=== PATIENT | female | born 1935 | race African-American/Black ===

== ENCOUNTER → 2017-01-18 | Outpatient (CLI) | payer MEDICARE, MEDICAID | LOC: RAD 13:30 | PROVIDERS: ATTEND Internal Medicine | DX: R63.4 Abnormal weight loss (principal) | CPT/HCPCS: 74177; 82565 ==

== ENCOUNTER → 2017-01-28 | Outpatient (CLI) | payer MEDICARE, MEDICAID | LOC: WI 14:01 | PROVIDERS: ATTEND Internal Medicine | DX: Z12.31 Encounter for screening mammogram for malignant neoplasm of breast (principal) | CPT/HCPCS: 77067; G0202 ==

== ENCOUNTER → 2017-03-12 | Outpatient (CLI) | payer MEDICARE, MEDICAID | LOC: RAD 16:48 | PROVIDERS: ATTEND Internal Medicine | DX: R06.02 Shortness of breath (principal) | CPT/HCPCS: 71275; 82565 ==

== ENCOUNTER 2017-05-24 19:29 | Inpatient (IN) | payer MEDICARE, MEDICAID ==
[2017-05-24 21:44] LABS: HEMATOCRIT 22.3 % (36.0-47.0); HGB HCT DIFFERENCE -0.7; MEAN CORPUSCULAR HEMOGLOBIN 25.7 pg (27.0-33.4); MEAN CORPUSCULAR HGB CONC 32.1 g/dL (32.0-36.0); MEAN CORPUSCULAR VOLUME 80 fl (80-97); RED BLOOD COUNT 2.79 10^6/uL (3.72-5.28); RED CELL DISTRIBUTION WIDTH 14.4 % (11.5-14.0); WHITE BLOOD COUNT 8.8 10^3/uL (4.0-10.5)
[2017-05-24 21:52] LABS: HEMOGLOBIN 7.2 g/dL (12.0-15.5)
[2017-05-24 21:57] LABS: BLOOD UREA NITROGEN 35 mg/dL (7-20); CALCIUM 9.5 mg/dL (8.4-10.2); CARBON DIOXIDE 22 mmol/L (22-30); CHLORIDE 103 mmol/L (98-107); CREATININE RESULT 1.28 mg/dL (0.52-1.25); GLUCOSE 90 mg/dL (75-110); POTASSIUM 4.4 mmol/L (3.6-5.0); SODIUM 139.2 mmol/L (137-145)
[2017-05-24 21:58] LABS: ALANINE AMINOTRANSFERASE 25 U/L (9-52); ALBUMIN 4.2 g/dL (3.5-5.0); ALKALINE PHOSPHATASE 68 U/L (38-126); ANION GAP 14 (5-19); ASPARTATE AMINO TRANSFERASE 18 U/L (14-36); BILIRUBIN,DIRECT 0.3 mg/dL (0.0-0.4); BILIRUBIN,TOTAL 0.6 mg/dL (0.2-1.3); CREATINE KINASE 45 U/L (30-135); TOTAL PROTEIN 7.1 g/dL (6.3-8.2)
[2017-05-24 22:12] LABS: CREATINE KINASE MB 0.44 ng/mL (<4.55)
[2017-05-24 22:13] LABS: TROPONIN I < 0.012 ng/mL
[2017-05-24 23:07] LABS: FOLATE 9.59 ng/mL (>2.76)
[2017-05-24] MEDS ORDERED: DEXTROSE 50%-WATER SYRINGE 12.5 GM/25 ML DOSE IV PRN (23:16)
[2017-05-24] MEDS ORDERED: GLUCAGON,HUMAN RECOMB 1 MG INJ IM PRN (23:16)
[2017-05-24] MEDS ORDERED: DEXTROSE 40% GEL 15 GM TUBE X 2 PO PRN (23:16)
[2017-05-24] MEDS ORDERED: INSULIN LISPRO 100 UNIT/ML 3 ML VIAL SUBCUT PRN (23:16)
[2017-05-24] MEDS ORDERED: DEXTROSE 40% GEL 15 GM TUBE PO PRN (23:16)
[2017-05-24] MEDS ORDERED: DEXTROSE 50%-WATER SYRINGE 25 GM/50 ML DOSE IV PRN (23:16)
[2017-05-24] MEDS ORDERED: CYANOCOBALAMIN (VITAMIN B-12) 1,000 MCG TABLET PO ONE (23:30)
[2017-05-25] MEDS ORDERED: ALBUTEROL SULFATE 108 MCG IH PRN (00:15)
[2017-05-25] MEDS ORDERED: OXYCODONE-ACETAMINOPHEN 5-325 MG TABLET PO PRN ×4 (00:15→02:43)
[2017-05-25 00:26] LABS: THYROID STIMULATING HORMONE 2.64 uIU/mL (0.47-4.68)
[2017-05-25] MEDS ORDERED: OXYCODONE HCL IR 5 MG TABLET PO PRN ×2 (00:33→02:41)
--- NOTE | 2017-05-25 07:51 | EKG REPORT ---
SEVERITY:- ABNORMAL ECG - SINUS RHYTHM RBBB AND LAFB : Confirmed by: Joaquin Robert MD 25-May-2017 07:50:31
[2017-05-25] MEDS: SITAGLIPTIN PHOSPHATE 50 MG TABLET PO SCH (09:42)
[2017-05-25] MEDS: METFORMIN HCL 500 MG TABLET PO SCH (09:42)
[2017-05-25] MEDS: CYANOCOBALAMIN (VITAMIN B-12) INJ 1000 MCG/1 ML VIAL SUBCUT SCH (09:42)
[2017-05-25] MEDS: CLOBETASOL PROPIONATE 0.05% CREAM 15 GM TP SCH ×2 (09:43→18:17)
[2017-05-25] MEDS: MEGESTROL ACETATE 20 MG TABLET PO SCH (09:43)
[2017-05-25] MEDS: ASCORBIC ACID 500 MG TABLET PO SCH (09:43)
[2017-05-25] MEDS: ASPIRIN 81 MG TABLET, ENT COATED PO SCH (09:43)
[2017-05-25] MEDS: AMMONIUM LACTATE 12% LOTION 225GM BOTTLE TOP SCH ×2 (09:44→18:18)
[2017-05-25 09:50] LABS: ANION GAP 13 (5-19); BLOOD UREA NITROGEN 29 mg/dL (7-20); CALCIUM 9.6 mg/dL (8.4-10.2); CARBON DIOXIDE 22 mmol/L (22-30); CHLORIDE 102 mmol/L (98-107); CREATININE RESULT 0.88 mg/dL (0.52-1.25); GLUCOSE 113 mg/dL (75-110); POTASSIUM 3.8 mmol/L (3.6-5.0); SODIUM 137.1 mmol/L (137-145)
[2017-05-25] MEDS ORDERED: ASPIRIN 81 MG TABLET, ENT COATED PO SCH (10:00)
[2017-05-25] MEDS ORDERED: [UNRECOGNIZED DRUG - OTHER] PO SCH (10:00)
[2017-05-25] MEDS ORDERED: IRON PS CMPLX PO SCH (10:00)
[2017-05-25] MEDS ORDERED: CYANOCOBALAMIN (VITAMIN B-12) 1,000 MCG TABLET PO SCH (10:00)
[2017-05-25] MEDS ORDERED: ASPIRIN 325 MG TABLET PO SCH (10:00)
[2017-05-25] MEDS ORDERED: (PENDING PHARMACY ID) (Ammonium Lactate 1 APPLIC) TP SCH (10:00)
[2017-05-25] MEDS ORDERED: (PENDING PHARMACY ID) (Sitagliptin Phos/Metformin Hcl [Janumet 50-1,000 Mg Tablet] 1 EACH) PO SCH (10:00)
[2017-05-25] MEDS ORDERED: VIT B12 PO SCH (10:00)
--- NOTE | 2017-05-25 12:52 | PDOC H&P ---
History of Present Illness Admission Date/PCP: 05/24/17 19:29 NICKY KRUEGER MD History of Present Illness: JJ BARFIELD is a 81 year old female, She came to the office for evaluation of progressive shortness of breath, weakness and fatigue. She was evaluated extensively outpatient for shortness of breath, part of the evaluation included hemogram she was found to have hemoglobin of 9. She also had colonoscopy, EGD for evaluation of weight loss. Part of the evaluation for shortness of breath included CTA chest which was negative for pulmonary embolism or interstitial lung disease she also had outpatient cardiac perfusion stress test done there was normal myocardial perfusion study without evidence of inducible ischemia. Normal left ventricular wall motion and segmental function. The post stress ejection fraction was measured at 74%. Despite all this evaluation she continued to be short of breath presently she says she cannot walk any distance without getting short of breath. She was admitted directly from the office for evaluation of her symptoms. The hemogram revealed hemoglobin of 7.5 and she had a very low B12 level this suggest that she have severe symptomatic pernicious anemia. Past Medical History Cardiac Medical History: Reports: Hyperlipidema Pulmonary Medical History: Neurological Medical History: Endocrine Medical History: Reports: Diabetes Mellitus Type 2 GI Medical History: Musculoskeltal Medical History: Reports: Arthritis - hands,shoulder Psychiatric Medical History: Denies: Depression Hematology: Reports: Anemia Infectious Medical History: Past Surgical History Past Surgical History: Reports: Hysterectomy Social History Smoking Status: Never Smoker Frequency of Alcohol Use: None Hx Recreational Drug Use: No Drugs: None Hx Prescription Drug Abuse: No Family History Family History: Reviewed & Not Pertinent Parental Family History Reviewed: Yes Children Family History Reviewed: Yes Sibling(s) Family History Reviewed.: Yes Medication/Allergy Home Medications: Ferrous Sulfate [Iron] 325 mg PO BID 05/07/16 Albuterol Sulfate [Proair Respiclick] 108 mcg IH Q4HP PRN 05/24/17 Ammonium Lactate [Lac-Hydrin 12% Lotion 225Gm/Bottle] 1 applic TP BID 05/24/17 Ascorbic Acid [Vitamin C 500 mg Tablet] 500 mg PO DAILY 05/24/17 Megestrol Acetate 40 mg PO DAILY 05/24/17 Oxycodone HCl/Acetaminophen [Percocet 10-325 Mg Tablet] 1 tab PO Q8HP PRN Aspirin [Aspirin 81 mg Chewable Tablet] 81 mg PO DAILY 05/25/17 Allergies/Adverse Reactions: Penicillins Allergy (Intermediate, Verified 05/19/16 17:03) Swelling amoxicillin [Amoxicillin] Allergy (Verified 05/19/16 17:03) atorvastatin [Atorvastatin] Allergy (Verified 05/19/16 17:03) Review of Systems Constitutional: PRESENT: fatigue Eyes: ABSENT: visual disturbances Ears: ABSENT: hearing changes Cardiovascular: PRESENT: dyspnea on exertion Respiratory: PRESENT: dyspnea Gastrointestinal: ABSENT: as per HPI, abdominal pain, bloating, coffee ground emesis, constipation, diarrhea, dysphagia, heartburn, hematemesis, hematochezia , melena, nausea, vomiting, other Genitourinary: ABSENT: dysuria, hematuria Musculoskeletal: ABSENT: joint swelling Integumentary: ABSENT: rash, wounds Neurological: ABSENT: abnormal gait, abnormal speech, confusion, dizziness, focal weakness, syncope Psychiatric: ABSENT: anxiety, depression, homidical ideation, suicidal ideation Endocrine: ABSENT: cold intolerance, heat intolerance, menstrual abnormalities, polydipsia, polyuria Hematologic/Lymphatic: ABSENT: easy bleeding, easy bruising, lymphadenopathy Physical Exam Vital Signs: Temp Pulse Resp BP Pulse Ox 98.1 F 78 18 158/55 H 100 05/25/17 11:55 05/25/17 11:55 05/25/17 11:55 05/25/17 11:55 05/25/17 11:55 Intake & Output 05/24/17 05/25/17 05/26/17 06:59 06:59 06:59 Intake Total 173 400 Balance 173 400 Weight 46.6 kg Head exam: PRESENT: atraumatic, normocephalic Eye exam: PRESENT: conjunctiva pale, PERRLA Ear exam: PRESENT: normal external ear exam Mouth exam: PRESENT: moist, tongue midline Neck exam: PRESENT: full ROM Respiratory exam: PRESENT: clear to auscultation hira Cardiovascular exam: PRESENT: RRR, +S1, +S2 Pulses: PRESENT: normal dorsalis pedis pul, +2 pedal pulses bilateral Vascular exam: PRESENT: normal capillary refill GI/Abdominal exam: PRESENT: normal bowel sounds, soft. ABSENT: distended, guarding, mass, organolmegaly, rebound, tenderness Rectal exam: PRESENT: deferred Neurological exam: PRESENT: alert, awake, oriented to person, oriented to place , oriented to time, oriented to situation, CN II-XII grossly intact Psychiatric exam: PRESENT: appropriate affect, normal mood Skin exam: PRESENT: dry, intact, warm Results Laboratory Results: 05/24/17 20:55 05/25/17 09:13 05/24/17 05/24/17 05/24/17 20:55 20:55 20:55 WBC 8.8 RBC 2.79 L Hgb 7.2 L Hct 22.3 L MCV 80 MCH 25.7 L MCHC 32.1 RDW 14.4 H Plt Count 311 Retic Count (auto) 2.07 Absolute Retic 0.058 Sodium 139.2 Potassium 4.4 Chloride 103 Carbon Dioxide 22 Anion Gap 14 BUN 35 H Creatinine 1.28 H Est GFR ( Amer) 49 L Est GFR (Non-Af Amer) 40 L Glucose 90 Calcium 9.5 Iron 49.1 TIBC 350 % Saturation 14 Ferritin 31.60 Total Bilirubin 0.6 AST 18 ALT 25 Alkaline Phosphatase 68 Total Protein 7.1 Albumin 4.2 Vitamin B12 212.0 L Folate 9.59 TSH 2.64 Free T4 1.16 Blood Type Antibody Screen 05/24/17 05/25/17 23:33 09:13 WBC RBC Hgb Hct MCV MCH MCHC RDW Plt Count Retic Count (auto) Absolute Retic Sodium 137.1 Potassium 3.8 Chloride 102 Carbon Dioxide 22 Anion Gap 13 BUN 29 H Creatinine 0.88 Est GFR ( Amer) > 60 Est GFR (Non-Af Amer) > 60 Glucose 113 H Calcium 9.6 Iron TIBC % Saturation Ferritin Total Bilirubin AST ALT Alkaline Phosphatase Total Protein Albumin Vitamin B12 Folate TSH Free T4 Blood Type AB POSITIVE Antibody Screen POSITIVE 05/24/17 05/24/17 20:55 20:55 Creatine Kinase 45 CK-MB (CK-2) 0.44 Troponin I < 0.012 NT-Pro-B Natriuret Pep 504 H Assessment & Plan - Diagnosis (1) Pernicious anemia Is this a current diagnosis for this admission?: YesPlan: she will be given daily b12 injection (2) Anemia Qualifiers: Anemia type: B12 deficiency 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 Qualified Code(s): 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
--- NOTE | 2017-05-25 14:30 | RADIOLOGY REPORT (SQ) ---
EXAM DESCRIPTION: MRI HEAD WITHOUT COMPLETED DATE/TIME: 05/25/2017 2:17 pm REASON FOR STUDY: Wt loss and SOB COMPARISON: CT dated 01/31/2012. TECHNIQUE: Multiplanar imaging includes non-contrasted T1, T2, FLAIR, and diffusion with ADC map seq uences. Images stored on PACS. LIMITATIONS: None. FINDINGS: ANATOMY: No anomalies. Normal vascular flow voids. Pituitary fossa normal. CSF SPACES: Atrophy induced prominence of ventricles and CSF spaces. CEREBRUM: High signal intensity lesions scattered throughout the white matter on FLAIR imaging with d istribution suggesting micro-vascular ischemic changes. No evidence of hemorrhage, mass, or extraaxi al fluid collection. POSTERIOR FOSSA: No signal alteration. No hemorrhage. No edema, masses or mass effect. Internal christiano tory canals, cerebello-pontine angles, mastoids normal. DIFFUSION IMAGING: Negative for acute or sub-acute infarction. ORBITS: No masses. Globes normal. PARANASAL SINUSES: No fluid levels. Mucosa normal. OTHER: No other significant finding. IMPRESSION: ATROPHY AND CHRONIC MICRO-VASCULAR ISCHEMIC CHANGES. OTHERWISE NORMAL MRI OF THE BRAIN W ITHOUT INTRAVENOUS GADOLINIUM CONTRAST. TECHNICAL DOCUMENTATION: JOB ID: [id number]- All Rights Reserved
[2017-05-25 15:52] LABS: ABSOLUTE BASOPHILS # (AUTO) 0.1 10^3/uL (0.0-0.2); ABSOLUTE EOSINOPHILS # (AUTO) 0.4 10^3/uL (0.0-0.6); ABSOLUTE LYMPHOCYTES (AUTO) 1.7 10^3/uL (0.5-4.7); ABSOLUTE MONOCYTES (AUTO) 0.6 10^3/uL (0.1-1.4); ABSOLUTE NEUT (AUTO) 5.3 10^3/uL (1.7-8.2); BASOPHILS % (AUTO) 0.6 % (0-2); EOSINOPHILS % (AUTO) 4.9 % (0-6); HEMATOCRIT 33.7 % (36.0-47.0); HGB HCT DIFFERENCE -0.7; LYMPHOCYTES % (AUTO) 21.3 % (13-45); MEAN CORPUSCULAR HEMOGLOBIN 27.1 pg (27.0-33.4); MEAN CORPUSCULAR HGB CONC 32.7 g/dL (32.0-36.0); MEAN CORPUSCULAR VOLUME 83 fl (80-97); MONOCYTES % (AUTO) 7.4 % (3-13); RED BLOOD COUNT 4.07 10^6/uL (3.72-5.28); RED CELL DISTRIBUTION WIDTH 16.2 % (11.5-14.0); SEGMENTED NEUTROPHILS % (AUTO) 65.8 % (42-78)
[2017-05-25 16:09] LABS: ALANINE AMINOTRANSFERASE 22 U/L (9-52); ALKALINE PHOSPHATASE 54 U/L (38-126); ANION GAP 14 (5-19); ASPARTATE AMINO TRANSFERASE 19 U/L (14-36); BILIRUBIN,DIRECT 0.2 mg/dL (0.0-0.4); BILIRUBIN,TOTAL 1.7 mg/dL (0.2-1.3); BLOOD UREA NITROGEN 23 mg/dL (7-20); CALCIUM 9.4 mg/dL (8.4-10.2); CARBON DIOXIDE 21 mmol/L (22-30); CHLORIDE 103 mmol/L (98-107); CREATININE RESULT 0.98 mg/dL (0.52-1.25); GLUCOSE 117 mg/dL (75-110); SODIUM 137.8 mmol/L (137-145); TOTAL PROTEIN 6.9 g/dL (6.3-8.2)
--- NOTE | 2017-05-25 17:11 | PDOC PROGRESS REPORT ---
Subjective Progress Note for:: 05/25/17 Subjective:: Patient was admitted yesterday because of severe anemia due to pernicious anemia. She was transfused with 2 units of packed red blood. She stated that she she has more energy MRI of the brain was done today because of concern for weight loss and a headache. The MRI showed cerebral atrophy otherwise was a negative study. Physical Exam Vital Signs: Temp Pulse Resp BP Pulse Ox 97.4 F 82 18 141/59 H 100 05/25/17 13:11 05/25/17 14:00 05/25/17 13:11 05/25/17 13:11 05/25/17 13:11 Intake & Output 05/24/17 05/25/17 05/26/17 06:59 06:59 06:59 Intake Total 173 1158 Output Total 150 Balance 173 1008 Weight 46.6 kg General appearance: PRESENT: no acute distress, well-developed Head exam: PRESENT: atraumatic, normocephalic Eye exam: PRESENT: conjunctiva pink, EOMI, PERRLA Ear exam: PRESENT: normal external ear exam Mouth exam: PRESENT: moist, tongue midline Respiratory exam: PRESENT: clear to auscultation hira Cardiovascular exam: PRESENT: RRR, +S1, +S2 Vascular exam: PRESENT: normal capillary refill GI/Abdominal exam: PRESENT: normal bowel sounds, soft Rectal exam: PRESENT: deferred Neurological exam: PRESENT: alert, awake, oriented to person, oriented to place , oriented to time, oriented to situation, CN II-XII grossly intact Psychiatric exam: PRESENT: appropriate affect, normal mood Skin exam: PRESENT: dry, intact, warm. ABSENT: cyanosis, rash Results Laboratory Results: 05/25/17 15:30 05/25/17 15:30 05/24/17 05/24/17 05/24/17 20:55 20:55 20:55 WBC 8.8 RBC 2.79 L Hgb 7.2 L Hct 22.3 L MCV 80 MCH 25.7 L MCHC 32.1 RDW 14.4 H Plt Count 311 Seg Neutrophils % Lymphocytes % Monocytes % Eosinophils % Basophils % Absolute Neutrophils Absolute Lymphocytes Absolute Monocytes Absolute Eosinophils Absolute Basophils Retic Count (auto) 2.07 Absolute Retic 0.058 Sodium 139.2 Potassium 4.4 Chloride 103 Carbon Dioxide 22 Anion Gap 14 BUN 35 H Creatinine 1.28 H Est GFR ( Amer) 49 L Est GFR (Non-Af Amer) 40 L Glucose 90 Calcium 9.5 Iron 49.1 TIBC 350 % Saturation 14 Ferritin 31.60 Total Bilirubin 0.6 AST 18 ALT 25 Alkaline Phosphatase 68 Total Protein 7.1 Albumin 4.2 Vitamin B12 212.0 L Folate 9.59 TSH 2.64 Free T4 1.16 Blood Type Antibody Screen 05/24/17 05/25/17 05/25/17 23:33 09:13 15:30 WBC 8.0 RBC 4.07 Hgb 11.0 L D Hct 33.7 L MCV 83 MCH 27.1 MCHC 32.7 RDW 16.2 H Plt Count 274 Seg Neutrophils % 65.8 Lymphocytes % 21.3 Monocytes % 7.4 Eosinophils % 4.9 Basophils % 0.6 Absolute Neutrophils 5.3 Absolute Lymphocytes 1.7 Absolute Monocytes 0.6 Absolute Eosinophils 0.4 Absolute Basophils 0.1 Retic Count (auto) Absolute Retic Sodium 137.1 Potassium 3.8 Chloride 102 Carbon Dioxide 22 Anion Gap 13 BUN 29 H Creatinine 0.88 Est GFR ( Amer) > 60 Est GFR (Non-Af Amer) > 60 Glucose 113 H Calcium 9.6 Iron TIBC % Saturation Ferritin Total Bilirubin AST ALT Alkaline Phosphatase Total Protein Albumin Vitamin B12 Folate TSH Free T4 Blood Type AB POSITIVE Antibody Screen POSITIVE 05/25/17 15:30 WBC RBC Hgb Hct MCV MCH MCHC RDW Plt Count Seg Neutrophils % Lymphocytes % Monocytes % Eosinophils % Basophils % Absolute Neutrophils Absolute Lymphocytes Absolute Monocytes Absolute Eosinophils Absolute Basophils Retic Count (auto) Absolute Retic Sodium 137.8 Potassium 4.0 Chloride 103 Carbon Dioxide 21 L Anion Gap 14 BUN 23 H Creatinine 0.98 Est GFR ( Amer) > 60 Est GFR (Non-Af Amer) 55 L Glucose 117 H Calcium 9.4 Iron TIBC % Saturation Ferritin Total Bilirubin 1.7 H AST 19 ALT 22 Alkaline Phosphatase 54 Total Protein 6.9 Albumin 4.0 Vitamin B12 Folate TSH Free T4 Blood Type Antibody Screen 05/24/17 05/24/17 20:55 20:55 Creatine Kinase 45 CK-MB (CK-2) 0.44 Troponin I < 0.012 NT-Pro-B Natriuret Pep 504 H Impressions: Head MRI 05/25/17 00:00 IMPRESSION: ATROPHY AND CHRONIC MICRO-VASCULAR ISCHEMIC CHANGES. OTHERWISE NORMAL MRI OF THE BRAIN WITHOUT INTRAVENOUS GADOLINIUM CONTRAST. 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
[2017-05-25] MEDS: FERROUS SULFATE 325 MG TABLET PO SCH (18:17)
[2017-05-25] MEDS ORDERED: DOXEPIN HCL 25 MG CAPSULE PO SCH (22:00)
[2017-05-25] MEDS ORDERED: (PENDING PHARMACY ID) (Pravastatin Sodium [Pravastatin Sodium] 40 MG) PO SCH (22:00)
[2017-05-26] MEDS: METFORMIN HCL 500 MG TABLET PO SCH (08:58)
[2017-05-26] MEDS: SITAGLIPTIN PHOSPHATE 50 MG TABLET PO SCH (09:02)
[2017-05-26] MEDS: AMMONIUM LACTATE 12% LOTION 225GM BOTTLE TOP SCH (11:00)
[2017-05-26] MEDS: CYANOCOBALAMIN (VITAMIN B-12) INJ 1000 MCG/1 ML VIAL SUBCUT SCH (11:00)
[2017-05-26] MEDS: ASPIRIN 81 MG TABLET, ENT COATED PO SCH (11:01)
[2017-05-26] MEDS: ASCORBIC ACID 500 MG TABLET PO SCH (11:01)
[2017-05-26] MEDS: FERROUS SULFATE 325 MG TABLET PO SCH (11:02)
[2017-05-26] MEDS: MEGESTROL ACETATE 20 MG TABLET PO SCH (11:02)
[2017-05-26] MEDS: CLOBETASOL PROPIONATE 0.05% CREAM 15 GM TP SCH (11:05)
--- NOTE | 2017-05-26 14:32 | PDOC DISCHARGE SUMMARY ---
General - Admit/Disc Date/PCP Admission Date/Primary Care Provider: 05/24/17 19:29 NICKY KRUEGER MD Discharge Date: 05/26/17 - Discharge Diagnosis (1) Pernicious anemia Is this a current diagnosis for this admission?: Yes (2) Anemia Is this a current diagnosis for this admission?: Yes (3) Diabetes mellitus type 2 in nonobese Is this a current diagnosis for this admission?: Yes (4) Osteoarthritis Is this a current diagnosis for this admission?: Yes - Additional Information Discharge Diet: Diabetic Discharge Activity: Activity As Tolerated Home Medications: Ferrous Sulfate [Iron] 325 mg PO BID 05/07/16 Albuterol Sulfate [Proair Respiclick] 108 mcg IH Q4HP PRN 05/24/17 Ammonium Lactate [Lac-Hydrin 12% Lotion 225Gm/Bottle] 1 applic TP BID 05/24/17 Ascorbic Acid [Vitamin C 500 mg Tablet] 500 mg PO DAILY 05/24/17 Megestrol Acetate 40 mg PO DAILY 05/24/17 Oxycodone HCl/Acetaminophen [Percocet 10-325 mg Tablet] 1 tab PO Q8HP PRN Aspirin [Aspirin 81 mg Chewable Tablet] 81 mg PO DAILY 05/25/17 Cyanocobalamin (Vitamin B-12) [Vitamin B-12 Inj 1000 Mcg/1 ml Vial] 1,000 mcg SUBCUT Q7D #12 vial 05/26/17 History of Present Illness History of Present Illness: JJ BARFIELD is a 81 year old female, She came to the office for evaluation of progressive shortness of breath, weakness and fatigue. She was evaluated extensively outpatient for shortness of breath, part of the evaluation included hemogram she was found to have hemoglobin of 9. She also had colonoscopy, EGD for evaluation of weight loss. Part of the evaluation for shortness of breath included CTA chest which was negative for pulmonary embolism or interstitial lung disease she also had outpatient cardiac perfusion stress test done there was normal myocardial perfusion study without evidence of inducible ischemia. Normal left ventricular wall motion and segmental function. The post stress ejection fraction was measured at 74%. Despite all this evaluation she continued to be short of breath presently she says she cannot walk any distance without getting short of breath. She was admitted directly from the office for evaluation of her symptoms. The hemogram revealed hemoglobin of 7.5 and she had a very low B12 level this suggest that she have severe symptomatic pernicious anemia. Hospital Course Hospital Course: Patient was admitted because of symptomatic anemia with shortness of breath, on admission the hemogram revealed hemoglobin 7, she was transfused with 2 units of packed red blood cells posttransfusion hemoglobin is 11. Patient improved significantly blood transfusion, she was found to have very low vitamin b12 . She was given B12 injections on a daily basis for the last 3 days. The result of the antibody to intrinsic factor is pending. Physical Exam Vital Signs: Temp Pulse Resp BP Pulse Ox 98.0 F 75 16 156/77 H 100 05/26/17 11:34 05/26/17 11:34 05/26/17 11:34 05/26/17 11:34 05/26/17 11:34 Intake & Output 05/25/17 05/26/17 05/27/17 06:59 06:59 06:59 Intake Total 173 2048 Output Total 550 Balance 173 1498 Weight 46.6 kg 47.7 kg General appearance: PRESENT: no acute distress, well-developed, well-nourished Head exam: PRESENT: atraumatic, normocephalic Eye exam: PRESENT: conjunctiva pink, EOMI, PERRLA Ear exam: PRESENT: normal external ear exam Mouth exam: PRESENT: moist, tongue midline Neck exam: PRESENT: full ROM. ABSENT: carotid bruit, JVD, lymphadenopathy, thyromegaly Respiratory exam: PRESENT: clear to auscultation hira Cardiovascular exam: PRESENT: RRR, +S1, +S2 Pulses: PRESENT: normal dorsalis pedis pul, +2 pedal pulses bilateral Vascular exam: PRESENT: normal capillary refill GI/Abdominal exam: PRESENT: normal bowel sounds, soft Rectal exam: PRESENT: deferred Neurological exam: PRESENT: alert, awake, oriented to person, oriented to place , oriented to time, oriented to situation, CN II-XII grossly intact. ABSENT: motor sensory deficit Psychiatric exam: PRESENT: appropriate affect, normal mood Skin exam: PRESENT: dry, intact, warm Results Laboratory Results: 05/25/17 15:30 05/25/17 15:30 05/24/17 05/25/17 05/25/17 20:55 15:30 15:30 WBC 8.0 RBC 4.07 Hgb 11.0 L D Hct 33.7 L MCV 83 MCH 27.1 MCHC 32.7 RDW 16.2 H Plt Count 274 Seg Neutrophils % 65.8 Lymphocytes % 21.3 Monocytes % 7.4 Eosinophils % 4.9 Basophils % 0.6 Absolute Neutrophils 5.3 Absolute Lymphocytes 1.7 Absolute Monocytes 0.6 Absolute Eosinophils 0.4 Absolute Basophils 0.1 Sodium 137.8 Potassium 4.0 Chloride 103 Carbon Dioxide 21 L Anion Gap 14 BUN 23 H Creatinine 0.98 Est GFR ( Amer) > 60 Est GFR (Non-Af Amer) 55 L Glucose 117 H Calcium 9.4 Transferrin 282 Total Bilirubin 1.7 H AST 19 ALT 22 Alkaline Phosphatase 54 Total Protein 6.9 Albumin 4.0 05/24/17 05/24/17 20:55 20:55 Creatine Kinase 45 CK-MB (CK-2) 0.44 Troponin I < 0.012 NT-Pro-B Natriuret Pep 504 H Impressions: Head MRI 05/25/17 00:00 IMPRESSION: ATROPHY AND CHRONIC MICRO-VASCULAR ISCHEMIC CHANGES. OTHERWISE NORMAL MRI OF THE BRAIN WITHOUT INTRAVENOUS GADOLINIUM CONTRAST.
[2017-05-26 14:38] VITALS: BP 141/59
== END 2017-05-26 16:30 | disposition home or self-care (01) | DRG 812 ==
LOC: 3W 19:29
PROVIDERS: ADMIT Internal Medicine; ATTEND Internal Medicine
PROC: 30233N1 Transfusion of Nonautologous Red Blood Cells into Peripheral Vein, Percutaneous Approach (ICD-10-PCS; principal; 2017-05-25)
DX: D51.0 Vitamin B12 deficiency anemia due to intrinsic factor deficiency (principal); Z68.1 Body mass index [BMI] 19.9 or less, adult; E11.9 Type 2 diabetes mellitus without complications; R63.4 Abnormal weight loss; E78.5 Hyperlipidemia, unspecified; M13.842 Other specified arthritis, left hand; M13.841 Other specified arthritis, right hand; M13.819 Other specified arthritis, unspecified shoulder; Z90.710 Acquired absence of both cervix and uterus; Z79.899 Other long term (current) drug therapy; Z88.0 Allergy status to penicillin; Z88.1 Allergy status to other antibiotic agents; Z88.8 Allergy status to other drugs, medicaments and biological substances
CPT/HCPCS: 36415; 36430; 70551; 80048; 80053; 80076; 82550; 82553; 82607; 82728; 82746; 82962; 83036; 83540; 83550; 83880; 84439; 84443; 84466; 84484; 85025; 85027; 85045; 85379; 86340; 86850; 86870; 86900; 86901; 86920; 86922; 87040; 93005; 93010; J3420; J3490; P9016

== ENCOUNTER 2017-08-12 16:05 | Emergency (ER) | payer MEDICARE, MEDICAID ==
[2017-08-12] MEDS ORDERED: HYDROCODONE/ACETAMINOPHEN 5-325 MG TABLET PO ONE (17:06)
--- NOTE | 2017-08-12 17:33 | RADIOLOGY REPORT (SQ) ---
EXAM DESCRIPTION: SHOULDER RIGHT 2 OR MORE VIEWS COMPLETED DATE/TIME: 08/12/2017 5:16 pm REASON FOR STUDY: pain COMPARISON: None. NUMBER OF VIEWS: Three views. TECHNIQUE: Internal rotation, external rotation, and Y view images acquired of the right shoulder. LIMITATIONS: None. FINDINGS: MINERALIZATION: Normal. BONES: No acute fracture or dislocation. No worrisome bone lesions. JOINTS: No dislocation. VISUALIZED LUNGS AND RIBS: No pneumothorax. No rib fracture. SOFT TISSUES: There is soft tissue calcification adjacent to the humeral head on the internally rotat ed view. OTHER: No other significant finding. IMPRESSION: NEGATIVE STUDY OF THE RIGHT SHOULDER. NO RADIOGRAPHIC EVIDENCE OF ACUTE INJURY. TECHNICAL DOCUMENTATION: JOB ID: [id number] [employer]- All Rights Reserved
--- NOTE | 2017-08-12 17:38 | ER Document Report ---
ED Extremity Problem, Upper - General Chief Complaint: Arm Pain Stated Complaint: RIGHT ARM PAIN Time Seen by Provider: 08/12/17 17:05 Mode of Arrival: Ambulatory Information source: Patient Notes: Patient reports a spontaneous onset of right shoulder pain. She denies any trauma. Patient states that the pain is constant. It is worse with movement and better with rest. It radiates down the right arm. She denies any chest pain or shortness of breath. She denies any swelling or rashes. No fevers. It is severe and sharp. TRAVEL OUTSIDE OF THE [place] IN LAST 30 DAYS: No - Related Data Allergies/Adverse Reactions: Penicillins Allergy (Intermediate, Verified 08/12/17 16:10) Swelling amoxicillin [Amoxicillin] Allergy (Verified 08/12/17 16:10) atorvastatin [Atorvastatin] Allergy (Verified 08/12/17 16:10) Past Medical History - General Information source: Patient - Social History Smoking Status: Former Smoker Chew tobacco use (# tins/day): No Frequency of alcohol use: None Drug Abuse: None Family History: Reviewed & Not Pertinent - Past Medical History Cardiac Medical History: Reports: Hx Hypercholesterolemia Pulmonary Medical History: Neurological Medical History: Endocrine Medical History: Reports: Hx Diabetes Mellitus Type 2 Renal/ Medical History: Denies: Hx Peritoneal Dialysis GI Medical History: Musculoskeltal Medical History: Reports Hx Arthritis - hands,shoulder Psychiatric Medical History: Denies: Hx Depression Infectious Medical History: Past Surgical History: Reports: Hx Hysterectomy - Immunizations Immunizations up to date: Yes Hx Diphtheria, Pertussis, Tetanus Vaccination: Yes Hx Pneumococcal Vaccination: 10/29/16 Review of Systems - Review of Systems Constitutional: denies: Chills, Fever Cardiovascular: denies: Chest pain, Palpitations Respiratory: denies: Cough, Short of breath -: Yes All other systems reviewed and negative Physical Exam - Vital signs Vitals: Temp Pulse Resp BP Pulse Ox 98.0 F 72 16 134/52 H 99 08/12/17 16:10 08/12/17 16:10 08/12/17 16:10 08/12/17 16:10 08/12/17 16:10 Interpretation: Normal - General General appearance: Appears well, Alert - HEENT Head: Normocephalic, Atraumatic Eyes: Normal Pupils: PERRL - Respiratory Respiratory status: No respiratory distress Chest status: Nontender Breath sounds: Normal Chest palpation: Normal - Cardiovascular Rhythm: Regular Heart sounds: Normal auscultation Murmur: No - Abdominal Inspection: Normal Distension: No distension Bowel sounds: Normal Tenderness: Nontender Organomegaly: No organomegaly - Back Back: Normal, Nontender - Extremities General upper extremity: Normal inspection, Tender. No: Normal ROM - Right shoulder has a painful range of motion. She has some tenderness to palpation of the AC joint on the right. No effusion is appreciated. General lower extremity: Normal inspection, Nontender, Normal color, Normal ROM , Normal temperature, Normal weight bearing. No: Kaitlynn's sign - Neurological Neuro grossly intact: Yes Cognition: Normal Orientation: AAOx4 Venkatesh Coma Scale Eye Opening: Spontaneous Venkatesh Coma Scale Verbal: Oriented Marlow Coma Scale Motor: Obeys Commands Marlow Coma Scale Total: 15 Speech: Normal Motor strength normal: LUE, RUE, LLE, RLE Sensory: Normal - Psychological Associated symptoms: Normal affect, Normal mood - Skin Skin Temperature: Warm Skin Moisture: Dry Skin Color: Normal Course - Vital Signs Vital signs: Temp Pulse Resp BP Pulse Ox 98.0 F 72 16 134/52 H 99 08/12/17 16:10 08/12/17 16:10 08/12/17 16:10 08/12/17 16:10 08/12/17 16:10 - Diagnostic Test Radiology reviewed: Image reviewed, Reports reviewed - X-rays right shoulder shows no evidence of fracture or dislocation Procedures - Immobilization Right Shoulder Time completed: 17:36 Pre-Proc Neuro Vasc Exam: Normal Immobilizer type: Sling Performed by: Provider assisted, RN Post-Proc Neuro Vasc Exam: Normal Alignment checked and good: Yes Discharge - Discharge Clinical Impression: Shoulder tendinitis Condition: Stable Disposition: HOME, SELF-CARE Instructions: Tendonitis ([facility]) Additional Instructions: Please call the orthopedic surgeon, Dr. Jil Reyes, as soon as possible to arrange follow-up. Your blood pressure is mildly elevated. Please have this checked within 1 week by your doctor. Prescriptions: Hydrocodone/Acetaminophen [[place] 5-325 mg Tablet] 1 tab PO Q6 PRN #14 tablet PRN Reason: Prednisone [Deltasone 20 mg Tablet] 3 tab PO DAILY 5 Days tablet Forms: Elevated Blood Pressure Referrals: LORETA PRITCHARD MD [ACTIVE STAFF] - Follow up in 1 week
[2017-08-12 17:57] VITALS: BP 143/67
--- NOTE | 2017-08-13 14:31 | ER Document Report ---
Doctor's Note Notes: 08/13/17 14:30 [address]rs[address] Rodriguez pharmacy just called and let me know that the patient filled a prescription for Percocet 10/[address] Helton today, states the family is now in the pharmacy trying to fill the prescription for the Percocet 5/325 that was given yesterday. Pharmacy instructed not to fill the prescription for Percocet 5/[address] Oden.
== END 2017-08-12 17:54 | disposition home or self-care (01) ==
LOC: ER 16:05
DX: M75.91 Shoulder lesion, unspecified, right shoulder (principal); M79.601 Pain in right arm; Z87.891 Personal history of nicotine dependence
CPT/HCPCS: 99283; 73030; A9270

== ENCOUNTER 2017-12-01 10:41 | Observation (INO) | payer MEDICARE, MEDICAID ==
[2017-12-01 12:00] LABS: ABSOLUTE BASOPHILS # (AUTO) 0.1 10^3/uL (0.0-0.2); ABSOLUTE EOSINOPHILS # (AUTO) 0.3 10^3/uL (0.0-0.6); ABSOLUTE LYMPHOCYTES (AUTO) 2.3 10^3/uL (0.5-4.7); ABSOLUTE MONOCYTES (AUTO) 0.6 10^3/uL (0.1-1.4); ABSOLUTE NEUT (AUTO) 5.7 10^3/uL (1.7-8.2); BASOPHILS % (AUTO) 0.7 % (0-2); EOSINOPHILS % (AUTO) 3.8 % (0-6); HEMATOCRIT 30.4 % (36.0-47.0); HEMOGLOBIN 10.2 g/dL (12.0-15.5); LYMPHOCYTES % (AUTO) 25.4 % (13-45); MEAN CORPUSCULAR HEMOGLOBIN 26.7 pg (27.0-33.4); MEAN CORPUSCULAR HGB CONC 33.6 g/dL (32.0-36.0); MEAN CORPUSCULAR VOLUME 79 fl (80-97); MONOCYTES % (AUTO) 6.5 % (3-13); PLATELET COUNT 325 10^3/uL (150-450); RED BLOOD COUNT 3.83 10^6/uL (3.72-5.28); RED CELL DISTRIBUTION WIDTH 15.6 % (11.5-14.0); SEGMENTED NEUTROPHILS % (AUTO) 63.6 % (42-78); TOTAL CELLS COUNTED % (AUTO) 100 %; WHITE BLOOD COUNT 8.9 10^3/uL (4.0-10.5)
[2017-12-01 12:16] LABS: ALANINE AMINOTRANSFERASE 22 U/L (9-52); ALBUMIN 4.5 g/dL (3.5-5.0); ALKALINE PHOSPHATASE 68 U/L (38-126); ANION GAP 12 (5-19); ASPARTATE AMINO TRANSFERASE 16 U/L (14-36); BILIRUBIN,DIRECT 0.2 mg/dL (0.0-0.4); BILIRUBIN,TOTAL 0.4 mg/dL (0.2-1.3); BLOOD UREA NITROGEN 26 mg/dL (7-20); CALCIUM 9.9 mg/dL (8.4-10.2); CARBON DIOXIDE 24 mmol/L (22-30); CHLORIDE 105 mmol/L (98-107); GLUCOSE 118 mg/dL (75-110); POTASSIUM 3.6 mmol/L (3.6-5.0); SODIUM 140.8 mmol/L (137-145); TOTAL PROTEIN 7.2 g/dL (6.3-8.2)
--- NOTE | 2017-12-01 13:34 | RADIOLOGY REPORT (SQ) ---
EXAM DESCRIPTION: CHEST PA/LAT COMPLETED DATE/TIME: 12/01/2017 11:39 am REASON FOR STUDY: SOB COMPARISON: Two-view chest 05/19/2016 CT chest 03/12/2017 EXAM PARAMETERS: NUMBER OF VIEWS: two views TECHNIQUE: Digital Frontal and Lateral radiographic views of the chest acquired. RADIATION DOSE: NA LIMITATIONS: none FINDINGS: LUNGS AND PLEURA: No opacities, masses or pneumothorax. No pleural effusion. MEDIASTINUM AND HILAR STRUCTURES: No masses or contour abnormalities. HEART AND VASCULAR STRUCTURES: Heart normal size. No evidence for failure. BONES: Convex rightward lower thoracic scoliosis. Bones osteopenic. HARDWARE: None in the chest. OTHER: No other significant finding. IMPRESSION: NO SIGNIFICANT RADIOGRAPHIC FINDING IN THE CHEST. TECHNICAL DOCUMENTATION: JOB ID: [id number] [employer]- All Rights Reserved
--- NOTE | 2017-12-01 16:12 | RADIOLOGY REPORT (SQ) ---
EXAM DESCRIPTION: NM LUNG VENT/PERF SCAN COMPLETED DATE/TIME: 12/01/2017 3:39 pm REASON FOR STUDY: SOB ,elevated ,d-dimer I48.3 TYPICAL ATRIAL FLUTTER E11.69 TYPE 2 DIABETES EUGENIOI NITA WITH OTHER SPECIFIED COMPLIC COMPARISON: Two view chest films from earlier. RADIONUCLIDE AND DOSE: 5.26 millicuries TC-99m MAA Intravenous 32.5 millicuries TC-99m DTPA Inhaled aerosol TECHNIQUE: Eight views of the lungs acquired post ventilation of DTPA aerosol. Eight matching views of the lungs acquired following injection of MAA. LIMITATIONS: None. FINDINGS: VENTILATION: Symmetric and homogeneous distribution of DTPA aerosol during ventilatory pha se. No significant areas of photopenia. PERFUSION: Perfusion images with normal homogenous activity and no wedge-shaped or segmental defects. No ventilation-perfusion mismatches. OTHER: No other significant finding. IMPRESSION: NORMAL VENTILATION-PERFUSION LUNG SCAN. NEGATIVE FOR PULMONARY EMBOLI. TECHNICAL DOCUMENTATION: JOB ID: [id number] [employer]- All Rights Reserved
[2017-12-01] MEDS ORDERED: (PENDING PHARMACY ID) (Sitagliptin Phos/Metformin Hcl [Janumet Xr 50-1,000 Mg Tablet] 1 TA PO SCH (17:00)
[2017-12-01 17:33] VITALS: BP 136/62
[2017-12-01] MEDS ORDERED: ASPIRIN 81 MG TABLET, CHEWABLE PO SCH (18:00)
[2017-12-01] MEDS ORDERED: ASCORBIC ACID 500 MG TABLET PO SCH (18:00)
[2017-12-01] MEDS ORDERED: COLCHICINE 0.6 MG TABLET PO SCH (18:00)
[2017-12-01] MEDS ORDERED: FERROUS SULFATE 325 MG TABLET PO SCH (18:00)
[2017-12-01] MEDS ORDERED: (PENDING PHARMACY ID) (Megestrol Acetate [Megestrol Acetate] 40 MG) PO SCH (18:00)
[2017-12-01] MEDS ORDERED: SITAGLIPTIN PHOSPHATE 50 MG TABLET PO ONE (19:00)
[2017-12-01] MEDS ORDERED: METFORMIN HCL 500 MG TABLET PO ONE (19:00)
--- NOTE | 2017-12-01 20:15 | PDOC H&P ---
History of Present Illness Admission Date/PCP: 12/01/17 10:41 NICKY KRUEGER MD History of Present Illness: JJ BARFIELD is a 81 year old female, She was admitted for evaluation of shortness of breath, this is progressive and chronic, she has no chest pain. She was evaluated previously for same problem, she had Cardiolite nuclear stress test in the last 24 months, it was negative for any acute reversibility. She was found to have elevated BNP, also found was elevated d-dimer, a V/Q scan was done it was negative for pulmonary embolism. A 2D echo was done it showed preserved ejection fraction of left ventricle, grade 2 diastolic dysfunction of left ventricle. Past Medical History Cardiac Medical History: Reports: Hyperlipidema Pulmonary Medical History: Reports: Pneumonia - many yrs ago Neurological Medical History: Endocrine Medical History: Reports: Diabetes Mellitus Type 2 GI Medical History: Musculoskeltal Medical History: Reports: Arthritis - hands,shoulder Psychiatric Medical History: Denies: Depression Hematology: Reports: Anemia Denies: Sickle Cell Disease Infectious Medical History: Past Surgical History Past Surgical History: Reports: Hysterectomy Denies: Amputation Social History Smoking Status: Former Smoker Frequency of Alcohol Use: None Hx Recreational Drug Use: No Drugs: None Hx Prescription Drug Abuse: No Family History Family History: Reviewed & Not Pertinent Parental Family History Reviewed: Yes Children Family History Reviewed: Yes Sibling(s) Family History Reviewed.: Yes Medication/Allergy Home Medications: Ascorbic Acid [Vitamin C 500 mg Tablet] 500 mg PO DAILY 12/01/17 Aspirin [Aspirin 81 mg Chewable Tablet] 81 mg PO DAILY 12/01/17 Colchicine [Colcrys 0.6 mg Tablet] 0.6 mg PO DAILY 12/01/17 Ferrous Sulfate [Feosol 325 mg Tablet] 325 mg PO BID 12/01/17 Megestrol Acetate 40 mg PO BID 12/01/17 Sitagliptin Phos/Metformin HCl [Janumet Xr 50-1,000 mg Tablet] 1 tab PO DAILY Allergies/Adverse Reactions: Penicillins Allergy (Intermediate, Verified 08/12/17 16:10) Swelling amoxicillin [Amoxicillin] Allergy (Verified 08/12/17 16:10) atorvastatin [Atorvastatin] Allergy (Verified 08/12/17 16:10) Review of Systems Constitutional: ABSENT: chills, fever(s), headache(s), weight gain, weight loss Eyes: ABSENT: visual disturbances Ears: ABSENT: hearing changes Cardiovascular: PRESENT: dyspnea on exertion Respiratory: ABSENT: cough, hemoptysis Gastrointestinal: ABSENT: abdominal pain, constipation, diarrhea, hematemesis, hematochezia, nausea, vomiting Genitourinary: ABSENT: dysuria, hematuria Musculoskeletal: ABSENT: joint swelling Integumentary: ABSENT: rash, wounds Neurological: ABSENT: abnormal gait, abnormal speech, confusion, dizziness, focal weakness, syncope Psychiatric: ABSENT: anxiety, depression, homidical ideation, suicidal ideation Endocrine: ABSENT: cold intolerance, heat intolerance, menstrual abnormalities, polydipsia, polyuria Hematologic/Lymphatic: ABSENT: easy bleeding, easy bruising, lymphadenopathy Physical Exam Vital Signs: Temp Pulse Resp BP Pulse Ox 98.9 F 74 17 136/62 H 100 12/01/17 17:31 12/01/17 17:31 12/01/17 17:31 12/01/17 17:31 12/01/17 17:31 Intake & Output 11/30/17 12/01/17 12/02/17 06:59 06:59 06:59 Weight 44.9 kg General appearance: PRESENT: no acute distress, well-developed, well-nourished Head exam: PRESENT: atraumatic, normocephalic Eye exam: PRESENT: conjunctiva pink, EOMI, PERRLA Ear exam: PRESENT: normal external ear exam Mouth exam: PRESENT: moist, tongue midline Neck exam: PRESENT: full ROM Cardiovascular exam: PRESENT: RRR, +S1, +S2 Pulses: PRESENT: normal dorsalis pedis pul, +2 pedal pulses bilateral Vascular exam: PRESENT: normal capillary refill GI/Abdominal exam: PRESENT: normal bowel sounds, soft Rectal exam: PRESENT: deferred Neurological exam: PRESENT: alert, awake, oriented to person, oriented to place , oriented to time, oriented to situation, CN II-XII grossly intact Psychiatric exam: PRESENT: appropriate affect, normal mood Skin exam: PRESENT: dry, intact, warm Results Laboratory Results: 12/01/17 11:42 12/01/17 11:42 12/01/17 12/01/17 11:42 11:42 WBC 8.9 RBC 3.83 Hgb 10.2 L Hct 30.4 L MCV 79 L MCH 26.7 L MCHC 33.6 RDW 15.6 H Plt Count 325 Seg Neutrophils % 63.6 Lymphocytes % 25.4 Monocytes % 6.5 Eosinophils % 3.8 Basophils % 0.7 Absolute Neutrophils 5.7 Absolute Lymphocytes 2.3 Absolute Monocytes 0.6 Absolute Eosinophils 0.3 Absolute Basophils 0.1 Sodium 140.8 Potassium 3.6 Chloride 105 Carbon Dioxide 24 Anion Gap 12 BUN 26 H Creatinine 1.04 Est GFR ( Amer) > 60 Est GFR (Non-Af Amer) 51 L Glucose 118 H Calcium 9.9 Total Bilirubin 0.4 AST 16 ALT 22 Alkaline Phosphatase 68 Total Protein 7.2 Albumin 4.5 12/01/17 11:42 NT-Pro-B Natriuret Pep 1070 H Impressions: Chest X-Ray 12/01/17 00:00 IMPRESSION: NO SIGNIFICANT RADIOGRAPHIC FINDING IN THE CHEST. Lung Scan-VQ NM 12/01/17 00:00 IMPRESSION: NORMAL VENTILATION-PERFUSION LUNG SCAN. NEGATIVE FOR PULMONARY EMBOLI. Assessment & Plan - Diagnosis (1) Chronic diastolic (congestive) heart failure Is this a current diagnosis for this admission?: Yes Plan: Patient was admitted for observation, she will be discharged today (2) Diabetes mellitus type 2 in nonobese Is this a current diagnosis for this admission?: Yes (3) Osteoarthritis Qualifiers: Osteoarthritis location: multiple joints Osteoarthritis type: primary Qualified Code(s): M15.0 - Primary generalized (osteo)arthritis Is this a current diagnosis for this admission?: Yes
--- NOTE | 2017-12-01 20:19 | PDOC DISCHARGE SUMMARY ---
General - Admit/Disc Date/PCP Admission Date/Primary Care Provider: 12/01/17 10:41 NICKY KRUEGER MD Discharge Date: 12/01/17 - Discharge Diagnosis (1) Chronic diastolic (congestive) heart failure Is this a current diagnosis for this admission?: Yes (2) Diabetes mellitus type 2 in nonobese Is this a current diagnosis for this admission?: Yes (3) Osteoarthritis Is this a current diagnosis for this admission?: Yes - Additional Information Discharge Diet: Diabetic Discharge Activity: Activity As Tolerated Home Medications: Ascorbic Acid [Vitamin C 500 mg Tablet] 500 mg PO DAILY 12/01/17 Aspirin [Aspirin 81 mg Chewable Tablet] 81 mg PO DAILY 12/01/17 Colchicine [Colcrys 0.6 mg Tablet] 0.6 mg PO DAILY 12/01/17 Ferrous Sulfate [Feosol 325 mg Tablet] 325 mg PO BID 12/01/17 Megestrol Acetate 40 mg PO BID 12/01/17 Sitagliptin Phos/Metformin HCl [Janumet Xr 50-1,000 mg Tablet] 1 tab PO DAILY History of Present Illness History of Present Illness: JJ BARFIELD is a 81 year old female, She was admitted for evaluation of shortness of breath, this is progressive and chronic, she has no chest pain. She was evaluated previously for same problem, she had Cardiolite nuclear stress test in the last 24 months, it was negative for any acute reversibility. She was found to have elevated BNP, also found was elevated d-dimer, a V/Q scan was done it was negative for pulmonary embolism. A 2D echo was done it showed preserved ejection fraction of left ventricle, grade 2 diastolic dysfunction of left ventricle. Hospital Course Hospital Course: She was admitted for observation and evaluation of shortness of breath ,it suggests diastolic dysfunction of left ventricle, she will be discharge today for outpatient continuity of care Physical Exam Vital Signs: Temp Pulse Resp BP Pulse Ox 98.9 F 74 17 136/62 H 100 12/01/17 17:31 12/01/17 17:31 12/01/17 17:31 12/01/17 17:31 12/01/17 17:31 Intake & Output 11/30/17 12/01/17 12/02/17 06:59 06:59 06:59 Weight 44.9 kg General appearance: PRESENT: no acute distress Head exam: PRESENT: atraumatic, normocephalic Eye exam: PRESENT: conjunctiva pink, EOMI, PERRLA Ear exam: PRESENT: normal external ear exam Mouth exam: PRESENT: moist, tongue midline Neck exam: PRESENT: full ROM Respiratory exam: PRESENT: clear to auscultation hira Cardiovascular exam: PRESENT: RRR, +S1, +S2 Pulses: PRESENT: normal dorsalis pedis pul, +2 pedal pulses bilateral Vascular exam: PRESENT: normal capillary refill GI/Abdominal exam: PRESENT: normal bowel sounds, soft Rectal exam: PRESENT: deferred Neurological exam: PRESENT: alert. ABSENT: motor sensory deficit Psychiatric exam: PRESENT: appropriate affect, normal mood Skin exam: PRESENT: dry, intact, warm. ABSENT: cyanosis, rash Results Laboratory Results: 12/01/17 11:42 12/01/17 11:42 12/01/17 12/01/17 11:42 11:42 WBC 8.9 RBC 3.83 Hgb 10.2 L Hct 30.4 L MCV 79 L MCH 26.7 L MCHC 33.6 RDW 15.6 H Plt Count 325 Seg Neutrophils % 63.6 Lymphocytes % 25.4 Monocytes % 6.5 Eosinophils % 3.8 Basophils % 0.7 Absolute Neutrophils 5.7 Absolute Lymphocytes 2.3 Absolute Monocytes 0.6 Absolute Eosinophils 0.3 Absolute Basophils 0.1 Sodium 140.8 Potassium 3.6 Chloride 105 Carbon Dioxide 24 Anion Gap 12 BUN 26 H Creatinine 1.04 Est GFR ( Amer) > 60 Est GFR (Non-Af Amer) 51 L Glucose 118 H Calcium 9.9 Total Bilirubin 0.4 AST 16 ALT 22 Alkaline Phosphatase 68 Total Protein 7.2 Albumin 4.5 12/01/17 11:42 NT-Pro-B Natriuret Pep 1070 H Impressions: Chest X-Ray 12/01/17 00:00 IMPRESSION: NO SIGNIFICANT RADIOGRAPHIC FINDING IN THE CHEST. Lung Scan-VQ NM 12/01/17 00:00 IMPRESSION: NORMAL VENTILATION-PERFUSION LUNG SCAN. NEGATIVE FOR PULMONARY EMBOLI.
[2017-12-01] MEDS ORDERED: MEGESTROL ACETATE 20 MG TABLET PO SCH (22:00)
--- NOTE | 2017-12-01 23:25 | EKG REPORT ---
SEVERITY:- ABNORMAL ECG - SINUS RHYTHM RBBB AND LAFB : Confirmed by: Henrique Ortiz 01-Dec-2017 23:24:30
--- NOTE | 2017-12-01 23:39 | XCELERA REPORT ---
[address] [address] Transthoracic Echocardiogram Report Name: JJ BARFIELD Age: 81 yrs Gender: Female : 1935 Patient Status: Inpatient Patient Location: [address] [place] [address] Study Date: 12/01/2017 01:30 PM Height: 64 in Weight: 105 lb BSA: 1.5 m2 Procedure: A complete two-dimensional transthoracic echocardiogram was performed (2D, M-mode, spectral and color flow Doppler). The study was technically difficult with many images being suboptimal in quality. Reason For Study: SOB Ordering Physician: NICKY KRUEGER Performed By: Liza Ross Interpretation Summary The left ventricular ejection fraction is normal. There is borderline concentric left ventricular hypertrophy. The left ventricle is grossly normal size. Doppler measurements suggest pseudonormalized left ventricular relaxation, which is associated with grade II/IV or mild to moderate diastolic dysfunction Wall motion cannot be accurately commented on, but no definite regional wall motion abnormalities noted. The right ventricular systolic function is normal. The right atrium is normal. The left atrial size is normal. There is a mild amount of mitral regurgitation There is no mitral valve stenosis. There is a moderate amount of aortic regurgitation There is no aortic valve stenosis There is a trace to mild amount of tricuspid regurgitation Right ventricular systolic pressure is at the upper limits of normal The aortic root is not well visualized. The inferior vena cava appeared normal and decreased > 50% with respiration (RAP 5-10 mmHg) There is no pericardial effusion. MMode/2D Measurements & Calculations RVDd: 2.5 cm LVIDd: 3.1 cm FS: 29.3 % Ao root diam: 2.3 cm IVSd: 1.0 cm LVIDs: 2.2 cm EDV(Teich): 37.8 ml LVPWd: 1.0 cm ESV(Teich): 16.0 ml Ao root area: 4.3 cm2 EF(Teich): 57.7 % LA dimension: 2.8 cm Doppler Measurements & Calculations MV E max rich: MV P1/2t max rich: Ao V2 max: AI max rich: 87.4 cm/sec 87.9 cm/sec 145.2 cm/sec 470.3 cm/sec MV A max rich: MV P1/2t: 79.3 msec Ao max PG: AI max P.7 cm/sec 8.4 mmHg 88.9 mmHg MV E/A: 0.89 MVA(P1/2t): 2.8 cm2 AI dec slope: MV dec slope: 324.6 cm/sec2 239.5 cm/sec2 AI P1/2t: 575.1 msec LV V1 max PG: PA V2 max: TR max rich: 4.3 mmHg 87.4 cm/sec 247.0 cm/sec LV V1 max: PA max P.1 mmHg TR max P.1 cm/sec 24.4 mmHg Left Ventricle The left ventricle is grossly normal size. There is borderline concentric left ventricular hypertrophy. The left ventricular ejection fraction is normal. Doppler measurements suggest pseudonormalized left ventricular relaxation, which is associated with grade II/IV or mild to moderate diastolic dysfunction. Wall motion cannot be accurately commented on, but no definite regional wall motion abnormalities noted. Right Ventricle The right ventricle is normal size. There is normal right ventricular wall thickness. The right ventricular systolic function is normal. Atria The right atrium is normal. The left atrial size is normal. Interarterial septum not well visualized and not well dopplered. Cannot comment on ASD/PFO presence. Mitral Valve The mitral valve is grossly normal. There is no mitral valve stenosis. There is a mild amount of mitral regurgitation. Aortic Valve The aortic valve is sclerotic and shows some degree of functional abnormality. There is no aortic valve stenosis. There is a moderate amount of aortic regurgitation. Tricuspid Valve The tricuspid valve is not well visualized secondary to technical limitations. There is no tricuspid stenosis. There is a trace to mild amount of tricuspid regurgitation. Right ventricular systolic pressure is at the upper limits of normal. Pulmonic Valve The pulmonic valve is not well visualized. Great Vessels The aortic root is not well visualized. The inferior vena cava appeared normal and decreased > 50% with respiration (RAP 5-10 mmHg). Effusions There is no pericardial effusion. : NICKY KRUEGER > Henrique Ortiz
[2017-12-02] MEDS ORDERED: METFORMIN HCL 500 MG TABLET PO SCH (10:00)
[2017-12-02] MEDS ORDERED: SITAGLIPTIN PHOSPHATE 50 MG TABLET PO SCH (10:00)
== END 2017-12-01 18:40 | disposition home or self-care (01) ==
LOC: 4N 10:41
PROVIDERS: ADMIT Internal Medicine; ATTEND Internal Medicine
DX: I50.32 Chronic diastolic (congestive) heart failure (principal); E11.9 Type 2 diabetes mellitus without complications; M15.0 Primary generalized (osteo)arthritis; Z87.01 Personal history of pneumonia (recurrent); Z87.891 Personal history of nicotine dependence; Z79.82 Long term (current) use of aspirin; Z79.84 Long term (current) use of oral hypoglycemic drugs; Z79.899 Other long term (current) drug therapy
CPT/HCPCS: 36415; 85025; 80076; 80048; 83036; 85379; 83880; 93306; 71046; 78582; 93005; 93010; G0378; G0379; A9540; A9567; Q9969

== ENCOUNTER 2018-08-13 17:35 | Emergency (ER) | payer MEDICARE, MEDICAID ==
[2018-08-13 18:36] LABS: ABSOLUTE EOSINOPHILS # (AUTO) 1.2 10^3/uL (0.0-0.6); ABSOLUTE LYMPHOCYTES (AUTO) 1.3 10^3/uL (0.5-4.7); ABSOLUTE MONOCYTES (AUTO) 0.7 10^3/uL (0.1-1.4); ABSOLUTE NEUT (AUTO) 4.3 10^3/uL (1.7-8.2); BASOPHILS % (AUTO) 0.6 % (0-2); EOSINOPHILS % (AUTO) 15.6 % (0-6); HEMATOCRIT 29.5 % (36.0-47.0); HEMOGLOBIN 9.9 g/dL (12.0-15.5); LYMPHOCYTES % (AUTO) 17.9 % (13-45); MEAN CORPUSCULAR HEMOGLOBIN 26.6 pg (27.0-33.4); MEAN CORPUSCULAR HGB CONC 33.7 g/dL (32.0-36.0); MEAN CORPUSCULAR VOLUME 79 fl (80-97); MONOCYTES % (AUTO) 8.9 % (3-13); PLATELET COUNT 377 10^3/uL (150-450); RED BLOOD COUNT 3.73 10^6/uL (3.72-5.28); TOTAL CELLS COUNTED % (AUTO) 100 %; WHITE BLOOD COUNT 7.5 10^3/uL (4.0-10.5)
[2018-08-13 18:58] LABS: ALANINE AMINOTRANSFERASE 14 U/L (9-52); ALBUMIN 3.9 g/dL (3.5-5.0); ALKALINE PHOSPHATASE 92 U/L (38-126); ANION GAP 11 (5-19); ASPARTATE AMINO TRANSFERASE 15 U/L (14-36); BILIRUBIN,DIRECT 0.4 mg/dL (0.0-0.4); BILIRUBIN,TOTAL 0.6 mg/dL (0.2-1.3); BLOOD UREA NITROGEN 21 mg/dL (7-20); CALCIUM 9.3 mg/dL (8.4-10.2); CARBON DIOXIDE 24 mmol/L (22-30); CHLORIDE 106 mmol/L (98-107); GLUCOSE 134 mg/dL (75-110); SODIUM 140.6 mmol/L (137-145); TOTAL PROTEIN 6.9 g/dL (6.3-8.2)
--- NOTE | 2018-08-13 19:03 | ER Document Report ---
ED General - General Chief Complaint: Breathing Difficulty Stated Complaint: SHORTNESS OF BREATH Time Seen by Provider: 08/13/18 18:20 Notes: Patient is an 82-year-old female with a history of hypertension, hyperlipidemia , diabetes, diastolic congestive heart failure who presents with a complaint of actually 1-2 weeks of exertional shortness of breath. The patient states that this is new however family the bedside states that they recently came to the area as the patient's daughter, with whom she has lived for years, recently . The patient denies a history of similar symptoms in the past although of note review of the medical record reveals that the patient was hospitalized in November 2017 for the exact same complaint. A nuclear stress test showed no reversible ischemic disease, VQ scan was normal. When I confront the patient regarding this she states that she does not exactly recall how often or for how long she has had her current symptoms. Based on review of the primary care doctor's notes it appears that the patient has a long-standing history of the exact same symptoms. The patient denies any chest pain. She denies any fever, cough, syncope, diaphoresis. TRAVEL OUTSIDE OF THE [place] IN LAST 30 DAYS: No - Related Data Allergies/Adverse Reactions: Penicillins Allergy (Intermediate, Verified 08/13/18 17:36) Swelling amoxicillin [Amoxicillin] Allergy (Verified 08/13/18 17:36) atorvastatin [Atorvastatin] Allergy (Verified 08/13/18 17:36) Past Medical History - General Information source: Patient - Social History Smoking Status: Never Smoker Frequency of alcohol use: None Drug Abuse: None Lives with: Family Family History: Reviewed & Not Pertinent Patient has suicidal ideation: No Patient has homicidal ideation: No - Past Medical History Cardiac Medical History: Reports: Hx Hypercholesterolemia Pulmonary Medical History: Reports: Hx Pneumonia - many yrs ago Neurological Medical History: Endocrine Medical History: Reports: Hx Diabetes Mellitus Type 2 Renal/ Medical History: Denies: Hx Peritoneal Dialysis GI Medical History: Musculoskeletal Medical History: Reports Hx Arthritis - hands,shoulder Psychiatric Medical History: Denies: Hx Depression Infectious Medical History: Past Surgical History: Reports: Hx Hysterectomy - Immunizations Immunizations up to date: Yes Hx Diphtheria, Pertussis, Tetanus Vaccination: Yes Hx Pneumococcal Vaccination: 10/29/16 Review of Systems - Review of Systems Notes: Constitutional: Negative for fever. HENT: Negative for sore throat. Eyes: Negative for visual changes. Cardiovascular: Negative for chest pain. Respiratory: Positive for shortness of breath. Gastrointestinal: Negative for abdominal pain, vomiting or diarrhea. Genitourinary: Negative for dysuria. Musculoskeletal: Negative for back pain. Skin: Negative for rash. Neurological: Negative for headaches, weakness or numbness. 10 point ROS negative except as marked above and in HPI. Physical Exam - Vital signs Vitals: Temp Pulse Resp BP Pulse Ox 98.9 F 88 14 119/48 L 99 08/13/18 17:40 08/13/18 17:40 08/13/18 17:40 08/13/18 17:40 08/13/18 17:40 Interpretation: Normal Notes: PHYSICAL EXAMINATION: GENERAL: Well-appearing, well-nourished and in no acute distress. HEAD: Atraumatic, normocephalic. EYES: Pupils equal round and reactive to light, extraocular movements intact, sclera anicteric, conjunctiva are normal. ENT: nares patent, oropharynx clear without exudates. Moist mucous membranes. NECK: Normal range of motion, supple without lymphadenopathy LUNGS: Breath sounds clear to auscultation bilaterally and equal. No wheezes rales or rhonchi. HEART: Regular rate and rhythm without murmurs ABDOMEN: Soft, nontender, normoactive bowel sounds. No guarding, no rebound. No masses appreciated. EXTREMITIES: Normal range of motion, no pitting or edema. No cyanosis. NEUROLOGICAL: No focal neurological deficits. Moves all extremities spontaneously and on command. PSYCH: Normal mood, normal affect. SKIN: Warm, Dry, normal turgor, no rashes or lesions noted. Course - Re-evaluation Re-evalutation: 08/13/18 19:02 Patient presents with a complaint of shortness of breath, worsened by exertion that she states has been ongoing for the past several weeks. Family with her only recently came to town due to the of the patient's daughter who normally cared for the patient. Patient currently denies any symptoms, saturating 100% on room air, no tachypnea or tachycardia. The patient was hospitalized in November of this year for the exact same complaint. She was diagnosed as having diastolic congestive heart failure. Stress test did not show any reversible ischemia. VQ scan did not show any evidence of an acute pulmonary embolus. It appears that there is a component of dementia as the patient misses multiple historical facts and misses several orientation questions. Will obtain a chest x-ray, basic laboratories and plan for likely discharge home with outpatient follow-up. - Vital Signs Vital signs: Temp Pulse Resp BP Pulse Ox 98.9 F 88 14 119/48 L 99 08/13/18 17:40 08/13/18 17:40 08/13/18 17:40 08/13/18 17:40 08/13/18 17:40 - Laboratory Result Diagrams: 08/13/18 18:17 08/13/18 18:17 Laboratory results interpreted by me: 08/13/18 08/13/18 18:17 18:17 Hgb 9.9 L Hct 29.5 L MCV 79 L MCH 26.6 L Eosinophils % 15.6 H Absolute Eosinophils 1.2 H BUN 21 H Est GFR ( Amer) 53 L Est GFR (Non-Af Amer) 44 L Glucose 134 H - Diagnostic Test Radiology reviewed: Image reviewed, Reports reviewed Discharge - Discharge Clinical Impression: Chronic diastolic (congestive) heart failure, Exertional shortness of breath Condition: Good Disposition: HOME, SELF-CARE Additional Instructions: Please follow-up with your general doctor regarding today's concerns. You do not have any changes in your labs today relative to prior. You have a known history of diastolic congestive heart failure this is likely triggering her symptoms of exertional shortness of breath. Return for any additional concerns you may have. Referrals: NICKY KRUEGER MD [Primary Care Provider] - Follow up as needed
--- NOTE | 2018-08-13 19:19 | RADIOLOGY REPORT (SQ) ---
EXAM DESCRIPTION: CHEST 2 VIEWS COMPLETED DATE/TIME: 08/13/2018 6:42 pm REASON FOR STUDY: sob, cough COMPARISON: 12/01/2017 TECHNIQUE: Frontal and lateral radiographic views of the chest acquired. NUMBER OF VIEWS: Two view. LIMITATIONS: None. FINDINGS: LUNGS AND PLEURA: No pneumothorax. No consolidation or pleural effusion. MEDIASTINUM AND HILAR STRUCTURES: Stable. HEART AND VASCULAR STRUCTURES: Stable. BONES: No acute findings. HARDWARE: None in the chest. OTHER: No other significant finding. IMPRESSION: NO ACUTE FINDINGS. TECHNICAL DOCUMENTATION: JOB ID: [id number] [place]-72 2010 [employer]- All Rights Reserved Reading location - IP/workstation name: [employer]
[2018-08-13 19:31] LABS: NT PRO BNP 743 pg/mL (<450)
[2018-08-13 19:32] LABS: TROPONIN I < 0.012 ng/mL
[2018-08-13 19:52] VITALS: BP 154/74
--- NOTE | 2018-08-13 20:24 | EKG REPORT ---
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
== END 2018-08-13 19:57 | disposition home or self-care (01) ==
LOC: ER 17:35
DX: I11.0 Hypertensive heart disease with heart failure (principal); I50.32 Chronic diastolic (congestive) heart failure; R06.02 Shortness of breath; E11.9 Type 2 diabetes mellitus without complications; Z88.0 Allergy status to penicillin; Z88.8 Allergy status to other drugs, medicaments and biological substances
CPT/HCPCS: 36415; 71046; 80053; 83880; 84484; 85025; 93005; 93010; 99285

== ENCOUNTER 2018-10-17 16:21 | Emergency (ER) | payer MEDICARE, MEDICAID ==
--- NOTE | 2018-10-17 17:56 | ER Document Report ---
ED Medical Screen (RME) - General Chief Complaint: Shortness Of Breath Stated Complaint: SHORTNESS OF BREATH Time Seen by Provider: 10/17/18 17:52 Mode of Arrival: Wheelchair Information source: Patient, Relative Notes: 82-year-old female with a history of hypertension, dyslipidemia, diastolic heart failure who presents to the emergency room with shortness of breath and dyspnea on exertion. She denies chest pain. TRAVEL OUTSIDE OF THE [place] IN LAST 30 DAYS: No - Related Data Allergies/Adverse Reactions: Penicillins Allergy (Intermediate, Verified 08/13/18 17:36) Swelling amoxicillin [Amoxicillin] Allergy (Verified 08/13/18 17:36) atorvastatin [Atorvastatin] Allergy (Verified 08/13/18 17:36) Past Medical History - Social History Chew tobacco use (# tins/day): No Frequency of alcohol use: None Drug Abuse: None Family history: CAD, DM, Malignancy, Other - Past Medical History Cardiac Medical History: Reports: Hx Hypercholesterolemia Pulmonary Medical History: Reports: Hx Pneumonia - many yrs ago Neurological Medical History: Endocrine Medical History: Reports: Hx Diabetes Mellitus Type 2 Renal/ Medical History: Denies: Hx Peritoneal Dialysis GI Medical History: Musculoskeltal Medical History: Reports Hx Arthritis - hands,shoulder Psychiatric Medical History: Denies: Hx Depression Infectious Medical History: Past Surgical History: Reports: Hx Hysterectomy - Immunizations Immunizations up to date: Yes Hx Diphtheria, Pertussis, Tetanus Vaccination: Yes History of Influenza Vaccine for 08/2017 - 01/2018 Season: Yes Influenza Administration Date for 08/2017 - 01/2018 Season: 08/15/17 Physical Exam - Vital signs Vitals: Temp Pulse Resp BP Pulse Ox 98.0 F 93 14 143/54 H 100 10/17/18 16:30 10/17/18 16:30 10/17/18 16:30 10/17/18 16:30 10/17/18 16:30 Course - Vital Signs Vital signs: Temp Pulse Resp BP Pulse Ox 98.0 F 93 14 143/54 H 100 10/17/18 16:30 10/17/18 16:30 10/17/18 16:30 10/17/18 16:30 10/17/18 16:30 Doctor's Discharge - Discharge Referrals: NICKY KRUEGER MD [Primary Care Provider] - Follow up as needed
--- NOTE | 2018-10-17 18:23 | RADIOLOGY REPORT (SQ) ---
None EXAM DESCRIPTION: CHEST SINGLE VIEW COMPLETED DATE/TIME: 10/17/2018 6:16 pm REASON FOR STUDY: sob COMPARISON: [id number] EXAM PARAMETERS: NUMBER OF VIEWS: One view. TECHNIQUE: Single frontal radiographic view of the chest acquired. RADIATION DOSE: NA LIMITATIONS: None. FINDINGS: LUNGS AND PLEURA: No opacities, masses or pneumothorax. No pleural effusion. MEDIASTINUM AND HILAR STRUCTURES: No masses. Contour normal. HEART AND VASCULAR STRUCTURES: Heart normal in size. Normal vasculature. BONES: Chronic scoliosis. HARDWARE: None in the chest. OTHER: No other significant finding. IMPRESSION: NO ACUTE RADIOGRAPHIC FINDING IN THE CHEST. TECHNICAL DOCUMENTATION: JOB ID: [id number] [employer]- All Rights Reserved Reading location - IP/workstation name: [email or web address]
[2018-10-17 19:29] LABS: ABSOLUTE BASOPHILS # (AUTO) 0.1 10^3/uL (0.0-0.2); ABSOLUTE EOSINOPHILS # (AUTO) 1.4 10^3/uL (0.0-0.6); ABSOLUTE LYMPHOCYTES (AUTO) 1.5 10^3/uL (0.5-4.7); ABSOLUTE MONOCYTES (AUTO) 0.7 10^3/uL (0.1-1.4); BASOPHILS % (AUTO) 0.8 % (0-2); EOSINOPHILS % (AUTO) 18.6 % (0-6); HEMATOCRIT 28.9 % (36.0-47.0); HEMOGLOBIN 9.8 g/dL (12.0-15.5); LYMPHOCYTES % (AUTO) 19.2 % (13-45); MEAN CORPUSCULAR HEMOGLOBIN 26.7 pg (27.0-33.4); MEAN CORPUSCULAR HGB CONC 33.8 g/dL (32.0-36.0); MEAN CORPUSCULAR VOLUME 79 fl (80-97); MONOCYTES % (AUTO) 8.7 % (3-13); PLATELET COUNT 340 10^3/uL (150-450); RED BLOOD COUNT 3.67 10^6/uL (3.72-5.28); RED CELL DISTRIBUTION WIDTH 15.3 % (11.5-14.0); SEGMENTED NEUTROPHILS % (AUTO) 52.7 % (42-78); TOTAL CELLS COUNTED % (AUTO) 100 %; WHITE BLOOD COUNT 7.6 10^3/uL (4.0-10.5)
[2018-10-17 19:47] LABS: ALANINE AMINOTRANSFERASE 8 U/L (9-52); ALBUMIN 3.9 g/dL (3.5-5.0); ALKALINE PHOSPHATASE 68 U/L (38-126); ANION GAP 13 (5-19); ASPARTATE AMINO TRANSFERASE 16 U/L (14-36); BILIRUBIN,DIRECT 0.2 mg/dL (0.0-0.4); BILIRUBIN,TOTAL 0.3 mg/dL (0.2-1.3); BLOOD UREA NITROGEN 27 mg/dL (7-20); CALCIUM 9.2 mg/dL (8.4-10.2); CARBON DIOXIDE 24 mmol/L (22-30); CHLORIDE 105 mmol/L (98-107); CREATINE KINASE 35 U/L (30-135); GLUCOSE 85 mg/dL (75-110); POTASSIUM 3.9 mmol/L (3.6-5.0); SODIUM 142.1 mmol/L (137-145); TOTAL PROTEIN 6.9 g/dL (6.3-8.2)
[2018-10-17 19:58] LABS: CREATINE KINASE MB < 0.22 ng/mL (<4.55); TROPONIN I < 0.012 ng/mL
--- NOTE | 2018-10-17 22:01 | ER Document Report ---
ED General - General Chief Complaint: Shortness Of Breath Stated Complaint: SHORTNESS OF BREATH Time Seen by Provider: 10/17/18 17:52 Mode of Arrival: Wheelchair Notes: Patient is an 82-year-old female who presents with complaints of difficulty breathing. Family says this has actually been ongoing for over a year. She gets short its ups moves around. [facility] where they have done stress testing as well as a heart catheterization. These were all negative for ischemic heart disease. She has been worked up by her doctor as well. The exact cause is not clear. She presents today because she continues to have the exertional dyspnea but also has some left shoulder pain. Pain is worse with movement and she has a history of arthritis in her shoulders. She initially had some pain in her right shoulder a few days ago but now it is more the left and she says it hurts to move her left shoulder. No fevers. No vomiting. No other complaints at this time. No leg pain or leg swelling that is new. TRAVEL OUTSIDE OF THE [place] IN LAST 30 DAYS: No - Related Data Allergies/Adverse Reactions: Penicillins Allergy (Intermediate, Verified 08/13/18 17:36) Swelling amoxicillin [Amoxicillin] Allergy (Verified 08/13/18 17:36) atorvastatin [Atorvastatin] Allergy (Verified 08/13/18 17:36) Past Medical History - General Information source: Patient, Relative - Social History Smoking Status: Former Smoker Chew tobacco use (# tins/day): No Frequency of alcohol use: None Drug Abuse: None Family History: Reviewed & Not Pertinent Patient has suicidal ideation: No Patient has homicidal ideation: No - Past Medical History Cardiac Medical History: Reports: Hx Hypercholesterolemia Pulmonary Medical History: Reports: Hx Pneumonia - many yrs ago Neurological Medical History: Endocrine Medical History: Reports: Hx Diabetes Mellitus Type 2 Renal/ Medical History: Denies: Hx Peritoneal Dialysis GI Medical History: Musculoskeletal Medical History: Reports Hx Arthritis - hands,shoulder Psychiatric Medical History: Denies: Hx Depression Infectious Medical History: Past Surgical History: Reports: Hx Hysterectomy - Immunizations Immunizations up to date: Yes Hx Diphtheria, Pertussis, Tetanus Vaccination: Yes Hx Pneumococcal Vaccination: 10/29/16 Review of Systems - Review of Systems Notes: My Normal Review Basic REVIEW OF SYSTEMS: CONSTITUTIONAL : Denies fever, chills, or sweats. Denies recent illness. EENT: Denies eye, ear, throat, or mouth pain or symptoms. Denies nasal or sinus congestion. CARDIOVASCULAR: Denies chest pain. RESPIRATORY: Difficulty breathing with exertion. GASTROINTESTINAL: Denies abdominal pain. Denies nausea, vomiting, or diarrhea. MUSCULOSKELETAL: Left shoulder pain. SKIN: Denies rash or skin lesions. NEUROLOGICAL: Denies altered mental status or loss of consciousness. Denies headache. Denies weakness or paralysis or loss of use of either side. Denies problems with gait or speech. Denies sensory or motor loss. ALL OTHER SYSTEMS REVIEWED AND NEGATIVE. Physical Exam - Vital signs Vitals: Temp Pulse Resp BP Pulse Ox 98.0 F 93 14 143/54 H 100 10/17/18 16:30 10/17/18 16:30 10/17/18 16:30 10/17/18 16:30 10/17/18 16:30 - Notes Notes: General Appearance: Well nourished, alert, cooperative, no acute distress, no obvious discomfort. Well-appearing. Vitals: reviewed, See vital signs table. Head: no swelling or tenderness to the head Eyes: PERRL, EOMI, Conjuctiva clear Mouth: No decreasd moisture Neck: Supple, no neck tenderness, No thyromegaly Lungs: No wheezing, No rales, No rhonci, No accessory muscle use, good air exchange bilaterally. Heart: Normal rate, Regular rythm, No murmur, no rub Back: Patient has severe scoliosis with left-sided side bending and rotation back posteriorly to the right. Abdomen: Normal BS, soft, No rigidity, No abdominal tenderness, No guarding, no rebound, no abdominal masses, no organomegaly Extremities: strength 5/5 in all extremities, good pulses in all extremities, patient has pain with range of motion of left shoulder. Is not stiff warm or hot. Exam is not consistent with that of a septic joint. Some tenderness to palpation. Exam more consistent with that of osteoarthritis flare. Skin: warm, dry, appropriate color, no rash Neuro: speech clear, oriented x 3, normal affect, responds appropriately to questions. Course - Re-evaluation Re-evalutation: 10/17/18 22:32 Patient complains of dyspnea on exertion. When I came to the history of this is been ongoing for well over a year. Family says that they have had her heart worked up thoroughly. She is him being [facility] with a done heart cath and stress test which have all been negative. Lung arteaga are always clear. She is 100% on room air at rest. They said the shortness of breath only comes with exertion. On my exam I realized severe scoliosis. This could be contributing to why she is short of breath when she gets up and move around as her scoliosis so severe is probably impeding her ability to take in good full deep breaths which is probably causing her to be short of breath on exertion. I explained this to the family and said that make sense. She has not seen physical therapy or a formal orthopedist or spine doctor in regards to this. I encouraged her to follow-up with her primary care doctor about possible referral to physical therapy to see if they can do anything to help her. I do not think she needs oxygen as she is 100% on room air. I do not think she needs any further cardiac workup as she has already had a heart cath within the last 6 months. In regards to her left shoulder pain. Her pain is easily reproducible with palpation and with any movement of the shoulder. She says she has chronic osteoarthritis and she thinks that could be related to it. I agree that her left shoulder pain most likely is osteoarthritis being that so painful with range of motion. There is no redness or swelling or warmth to would suggest infection. This time if the patient states to be discharged home. Encouraged him to return to ER if they have any further concerns. She has no chest pain. She looks well. EKG and cardiac enzymes are negative. Family agrees with plan and will follow up closely with her primary care doctor, Dr. Bedoya. Dictation of this chart was performed using voice recognition software; therefore, there may be some unintended grammatical errors. - Vital Signs Vital signs: Temp Pulse Resp BP Pulse Ox 98.6 F 93 30 H 145/64 H 100 10/17/18 22:36 10/17/18 16:30 10/17/18 22:36 10/17/18 22:36 10/17/18 22:36 - Laboratory Result Diagrams: 10/17/18 19:11 10/17/18 19:11 Laboratory results interpreted by me: 10/17/18 10/17/18 10/17/18 19:11 19:11 19:11 RBC 3.67 L Hgb 9.8 L Hct 28.9 L MCV 79 L MCH 26.7 L RDW 15.3 H Eosinophils % 18.6 H Absolute Eosinophils 1.4 H BUN 27 H Est GFR ( Amer) 51 L Est GFR (Non-Af Amer) 42 L ALT 8 L NT-Pro-B Natriuret Pep 643 H - EKG Interpretation by Me Additional EKG results interpreted by me: 10/17/18 22:00 EKG is reviewed and interpreted by me. EKG shows sinus rhythm with a rate of [address] segment elevation or depression. 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 Discharge - Discharge Clinical Impression: Dyspnea Qualifiers: Dyspnea type: dyspnea on exertion Qualified Code(s): R06.09 - Other forms of dyspnea Scoliosis Qualifiers: Scoliosis type: unspecified scoliosis Spinal region: unspecified Qualified Code (s): M41.9 - Scoliosis, unspecified Left shoulder pain Qualifiers: Chronicity: acute Qualified Code(s): M25.512 - Pain in left shoulder Condition: Good Disposition: HOME, SELF-CARE Additional Instructions: I suspect your dyspnea upon exertion could be related to your scoliosis. This is severe rotation and sidebending in your back. This affects your ability to take in full deep breaths and therefore could cause you t be more short of breath when you get up and walk around and move. Blood work looking at your heart today was normal. Chest x-ray does not show any evidence of any pneumonia or infection in your lungs. I do not think you require oxygen as your oxygen is 100% when you are lying at rest. I think it would help for you to possibly see physical therapy. Please speak with your primary care doctor about referral to physical therapy to see if there is anything they can do to help you. You were also concerned about your dry skin. Please use a lotion called Cera Ve to help keep your skin from drying out. Please return to the ER immediately if you have chest pain, worsening difficulty breathing, fevers, or feel unwell. Referrals: NICKY KRUEGER MD [Primary Care Provider] - Follow up tomorrow
[2018-10-17] MEDS ORDERED: DILTIAZEM HCL INJ 25 MG/5 ML VIAL IV ONE (22:06)
[2018-10-17] MEDS ORDERED: DILTIAZEM HCL/D5W 125 MG/125 ML RTUINJ IV PRN (22:06)
[2018-10-17 22:38] VITALS: BP 145/64
--- NOTE | 2018-10-18 11:25 | EKG REPORT ---
SEVERITY:- ABNORMAL ECG - SINUS RHYTHM RBBB AND LAFB : Confirmed by: Henrique Ortiz 18-Oct-2018 11:24:18
== END 2018-10-17 22:52 | disposition home or self-care (01) ==
LOC: ER 16:21
DX: M41.9 Scoliosis, unspecified (principal); R06.09 Other forms of dyspnea; M25.512 Pain in left shoulder; Z87.891 Personal history of nicotine dependence; E11.9 Type 2 diabetes mellitus without complications
CPT/HCPCS: 36415; 71045; 80053; 82550; 82553; 83735; 83880; 84484; 85025; 93005; 93010; 99285

== ENCOUNTER 2019-10-29 11:52 | Emergency (ER) | payer MEDICARE, MEDICAID ==
--- NOTE | 2019-10-29 12:58 | ER Document Report ---
ED Medical Screen (RME) - General Chief Complaint: Shortness Of Breath Stated Complaint: SHORTNESS OF BREATH/ITCHY Time Seen by Provider: 10/29/19 12:49 Primary Care Provider: NICKY KRUEGER MD [Primary Care Provider] - Follow up as needed TRAVEL OUTSIDE OF THE [place] IN LAST 30 DAYS: No - HPI Notes: 10/29/19 12:57 83 year old female to the ED with C/O exertional SOB that has been ongoing for over a year but worsening in the past several weeks. States she can barely walk 5 feet without getting significantly short of breath. Admits to intermittent chest pain, but non recently. No prior hx of CHF. Smoked at age 12, but has not smoked since. "used to have diabetes". Denies URI symptoms or fevers. I have performed a medical screening exam on the patient and determined she will need further management by mainside provider. I have placed initial orders to help expedite her care. - Related Data Allergies/Adverse Reactions: Penicillins Allergy (Intermediate, Verified 10/29/19 12:50) Swelling amoxicillin [Amoxicillin] Allergy (Verified 10/29/19 12:50) atorvastatin [Atorvastatin] Allergy (Verified 10/29/19 12:50) Past Medical History - Social History Family history: CAD, DM, Malignancy, Other - Past Medical History Cardiac Medical History: Reports: Hx Hypercholesterolemia Pulmonary Medical History: Reports: Hx Pneumonia - many yrs ago Neurological Medical History: Endocrine Medical History: Reports: Hx Diabetes Mellitus Type 2 Renal/ Medical History: Denies: Hx Peritoneal Dialysis GI Medical History: Musculoskeltal Medical History: Reports Hx Arthritis - hands,shoulder Psychiatric Medical History: Denies: Hx Depression Infectious Medical History: Past Surgical History: Reports: Hx Hysterectomy - Immunizations Immunizations up to date: Yes Hx Diphtheria, Pertussis, Tetanus Vaccination: Yes Physical Exam - Vital signs Vitals: Temp Pulse Resp BP Pulse Ox 97.8 F 75 14 138/59 H 99 10/29/19 12:09 10/29/19 12:09 10/29/19 12:09 10/29/19 12:09 10/29/19 12:09 Course - Vital Signs Vital signs: Temp Pulse Resp BP Pulse Ox 97.8 F 75 14 138/59 H 99 10/29/19 12:50 10/29/19 12:50 10/29/19 12:50 10/29/19 12:50 10/29/19 12:50 Doctor's Discharge - Discharge Referrals: NICKY KRUEGER MD [Primary Care Provider] - Follow up as needed
[2019-10-29 15:22] LABS: HEMATOCRIT 32.2 % (36.0-47.0); HEMOGLOBIN 10.4 g/dL (12.0-15.5); MEAN CORPUSCULAR HEMOGLOBIN 25.4 pg (27.0-33.4); MEAN CORPUSCULAR HGB CONC 32.4 g/dL (32.0-36.0); MEAN CORPUSCULAR VOLUME 78 fl (80-97); PLATELET COUNT 377 10^3/uL (150-450); RED BLOOD COUNT 4.11 10^6/uL (3.72-5.28); RED CELL DISTRIBUTION WIDTH 16.5 % (11.5-14.0); WHITE BLOOD COUNT 11.3 10^3/uL (4.0-10.5)
[2019-10-29 15:25] LABS: APPEARANCE,URINE SLIGHTLY-CLOUDY; BILIRUBIN,URINE NEGATIVE (NEGATIVE); COLOR,URINE YELLOW; GLUCOSE, URINE NEGATIVE (NEGATIVE); KETONES,URINE NEGATIVE (NEGATIVE); LEUKOCYTE ESTERASE,URINE TRACE (NEGATIVE); NITRITE,URINE NEGATIVE (NEGATIVE); PROTEIN,URINE NEGATIVE (NEGATIVE); URINE SPECIFIC GRAVITY 1.019; UROBILINOGEN,URINE NEGATIVE mg/dL (<2.0)
[2019-10-29 15:42] LABS: ABSOLUTE LYMPHOCYTES# (MANUAL) 1.1 10^3/uL (0.5-4.7); BASOPHILS % (MANUAL) 1 % (0-2); LYMPHOCYTES % (MANUAL) 10 % (13-45); MONOCYTES % (MANUAL) 9 % (3-13); SEGMENTED NEUTROPHILS % (MAN) 49 % (42-78); TOTAL CELLS COUNTED 100
[2019-10-29 15:44] LABS: ANISOCYTOSIS 1+; OVALOCYTES 1+; PLATELET COMMENT ADEQUATE; POIKILOCYTOSIS 1+
[2019-10-29 15:45] LABS: EOSINOPHILS % (MANUAL) 31 % (0-6)
[2019-10-29 15:49] LABS: ALKALINE PHOSPHATASE 94 U/L (38-126); ANION GAP 9 (5-19); ASPARTATE AMINO TRANSFERASE 19 U/L (14-36); BILIRUBIN,DIRECT 0.1 mg/dL (0.0-0.4); BILIRUBIN,TOTAL 0.4 mg/dL (0.2-1.3); BLOOD UREA NITROGEN 18 mg/dL (7-20); CALCIUM 9.3 mg/dL (8.4-10.2); CARBON DIOXIDE 30 mmol/L (22-30); CHLORIDE 101 mmol/L (98-107); GLUCOSE 107 mg/dL (75-110); POTASSIUM 4.2 mmol/L (3.6-5.0)
--- NOTE | 2019-10-29 15:49 | EKG REPORT ---
SEVERITY:- ABNORMAL ECG - SINUS RHYTHM RBBB AND LAFB : Confirmed by: Joaquin Robert MD 29-Oct-2019 15:48:14
[2019-10-29 15:58] LABS: NT PRO BNP 610 pg/mL (<450)
[2019-10-29 15:59] LABS: TROPONIN I < 0.012 ng/mL
--- NOTE | 2019-10-29 16:31 | RADIOLOGY REPORT (SQ) ---
EXAM DESCRIPTION: CHEST 2 VIEWS COMPLETED DATE/TIME: 10/29/2019 4:18 pm REASON FOR STUDY: exertional SOB COMPARISON: 10/17/2018 TECHNIQUE: Frontal and lateral radiographic views of the chest acquired. NUMBER OF VIEWS: Two view. LIMITATIONS: None. FINDINGS: LUNGS AND PLEURA: No pneumothorax. No consolidation or pleural effusion. MEDIASTINUM AND HILAR STRUCTURES: Stable. HEART AND VASCULAR STRUCTURES: Stable. BONES: No acute findings. HARDWARE: None in the chest. OTHER: No other significant finding. IMPRESSION: NO ACUTE FINDINGS. TECHNICAL DOCUMENTATION: JOB ID: [id number] [id number] 2010 [employer]- All Rights Reserved Reading location - IP/workstation name: [email or web address]
--- NOTE | 2019-10-29 18:29 | ER Document Report ---
ED General - General Chief Complaint: Shortness Of Breath Stated Complaint: SHORTNESS OF BREATH/ITCHY Time Seen by Provider: 10/29/19 12:49 Primary Care Provider: NICKY KRUEGER MD [Primary Care Provider] - Follow up as needed TRAVEL OUTSIDE OF THE [place] IN LAST 30 DAYS: No - Related Data Allergies/Adverse Reactions: Penicillins Allergy (Intermediate, Verified 10/29/19 12:50) Swelling amoxicillin [Amoxicillin] Allergy (Verified 10/29/19 12:50) atorvastatin [Atorvastatin] Allergy (Verified 10/29/19 12:50) Past Medical History - Social History Smoking Status: Never Smoker Family History: Reviewed & Not Pertinent Patient has suicidal ideation: No Patient has homicidal ideation: No - Past Medical History Cardiac Medical History: Reports: Hx Hypercholesterolemia Pulmonary Medical History: Reports: Hx Pneumonia - many yrs ago Neurological Medical History: Endocrine Medical History: Reports: Hx Diabetes Mellitus Type 2 Renal/ Medical History: Denies: Hx Peritoneal Dialysis GI Medical History: Musculoskeletal Medical History: Reports Hx Arthritis - hands,shoulder Psychiatric Medical History: Denies: Hx Depression Infectious Medical History: Past Surgical History: Reports: Hx Hysterectomy - Immunizations Immunizations up to date: Yes Hx Diphtheria, Pertussis, Tetanus Vaccination: Yes Hx Pneumococcal Vaccination: 10/29/16 Physical Exam - Vital signs Vitals: Temp Pulse Resp BP Pulse Ox 97.8 F 75 14 138/59 H 99 10/29/19 12:09 10/29/19 12:09 10/29/19 12:09 10/29/19 12:09 10/29/19 12:09 - Notes Notes: Patient presents to the emergency department planing of shortness of breath this been on for couple months. Is mostly with exertion. Is been intermittent in nature. Notes that patient is a very poor historian regarding this and most of the history is obtained from daughter. Family e says that occasionally when she is walking across the room shot to stop and take a deep breath and then is able to continue what she is doing. Patient denies any chest pain or palpitations associated with this. Denies any fevers or cough or lower extremity edema and no orthopnea. His main complaint is itching. This is been going on for months. She has been seen by family doctor and was given a shot that sounds like possible steroids. She will be put on a steroid cream which she says is not working she denies any rashes associated with this and no contact history Patient with a history significant for diabetes elevated cholesterol and CHF but no coronary artery disease. Social history smoker quit years ago she has no alcohol Patient not in any diuretic Family history is noncontributory Review of systems pertinent positives and negatives in HPI otherwise all the systems were reviewed and acutely negative PHYSICIAN EXAM -vital signs are noted triage note and note from triage reviewed GENERAL: Well-appearing, well-nourished and in _no acute distress HEAD: Atraumatic, normocephalic. EYES: Pupils equal round and reactive to light, extraocular movements intact, sclera anicteric, conjunctiva are normal. ENT: nares patent, oropharynx clear without exudates. Moist mucous membranes. NECK: supple without lymphadenopathy LUNGS: Breath sounds decreased in the right base but otherwise to auscultation bilaterally no respiratory distress no wheezes rales or rhonchi. HEART: Regular rate and rhythm without murmurs no JVD ABDOMEN: Soft, nontender, normoactive bowel sounds. EXTREMITIES: No deformity, no edema. No palpable cords NEUROLOGICAL: No focal neurological deficits. Moves all extremities spontaneously and on command. PSYCH: Normal mood, normal affect. SKIN: Warm, Dry, normal turgor, no rashes or lesions noted. She has several hypopigmented lesions consistent with vitiligo. He has some hyperpigmented skin also 1-2 slight excoriated areas scratching with no secondary infection BACK-nontender in the midline Differential diagnosis includes acute coronary syndrome COPD CHF Course - Re-evaluation Re-evalutation: 10/29/19 20:02 ED the patient has been stable she has been on a quality assurance monitor final she said no runs of arrhythmias vital signs have been good O2 sats is been good Medical decision making patient presents emerge department with intermittent episodes of dyspnea. Allergy is unclear at this time she has had no chest pain at all. Her troponin is negative reviewing her old chart from a year ago she reportedly had a cardiac cath done about a year or 2 ago that was normal as of CHF at this time. My suspicion for PE is extremely low she looks well at this point I think she be discharged home follow-up with her family doctor she may need an outpatient stress test BNP is minimally elevated but I suspect this is chronic in reviewing her old chart she has been running about the same She was given a prescription for Macrobid and prednisone for her itching Dictation was done using voice recognition software. There may be some grammatical errors which are unintentional I discussed results of laboratory findings and diagnostic test with patient/family. The treatment plan was explained and I reviewed the discharge instructions with them. Questions were answered. The patient/family verbalizes understanding 10/29/19 20:05 - Vital Signs Vital signs: Temp Pulse Resp BP Pulse Ox 97.8 F 75 14 138/59 H 99 10/29/19 12:50 10/29/19 12:50 10/29/19 12:50 10/29/19 12:50 10/29/19 12:50 - Laboratory Result Diagrams: 10/29/19 14:34 10/29/19 14:34 Laboratory results interpreted by me: 10/29/19 10/29/19 10/29/19 14:34 14:34 14:34 WBC 11.3 H Hgb 10.4 L Hct 32.2 L MCV 78 L MCH 25.4 L RDW 16.5 H Lymphocytes % (Manual) 10 L Eosinophils % (Manual) 31 H Absolute Eos (Manual) 3.5 H Est GFR ( Amer) 52 L Est GFR (MDRD) Non-Af 43 L NT-Pro-B Natriuret Pep 610 H Ur Leukocyte Esterase Urine Ascorbic Acid 10/29/19 14:34 WBC Hgb Hct MCV MCH RDW Lymphocytes % (Manual) Eosinophils % (Manual) Absolute Eos (Manual) Est GFR ( Amer) Est GFR (MDRD) Non-Af NT-Pro-B Natriuret Pep Ur Leukocyte Esterase TRACE H Urine Ascorbic Acid 40 H - Diagnostic Test Radiology reviewed: Reports reviewed - EKG read by me shows a normal sinus rhythm with a rate of 73 there is a right bundle branch block in the left axis secondary to a left anterior superior fascicular block. Her EKG is unchanged from a year ago - EKG Interpretation by Me Additional EKG results interpreted by me: 10/29/19 20:02 EKG read by me shows a normal sinus rhythm with a right bundle branch block and a left anterior superior fascicular block but unchanged from previous normal QT Discharge - Discharge Clinical Impression: Diabetes mellitus type 2 in nonobese, Pruritus Dyspnea Qualifiers: Dyspnea type: dyspnea on exertion Qualified Code(s): R06.09 - Other forms of dyspnea Condition: Stable Disposition: HOME, SELF-CARE Additional Instructions: Dyspnea, Nonspecific You were evaluated for shortness of breath, or dyspnea. Dyspnea has many causes, and some are more serious than others. Sometimes it's impossible to d iagnose the cause of dyspnea with the tests that are available on an emergency basis. Based on our evaluation today, you do not need hospitalization now. We found no evidence of pneumonia, collapsed lung, blood clots in the lung, tumors, or heart failure. Causes of non-specific dyspnea can include asthma or bronchospasm, hyperventilation, emotional distress, heart disease, emphysema, fibrosis of the lung, and stiffness of the chest wall. In healthy individuals with a single episode, it's sometimes reasonable to do nothing but wait to see if the problem occurs again. Additional tests used to evaluate dyspnea can include cardiac stress testing, echocardiography, pulmonary function testing, CAT scan of the chest, bronchoscopy or pulmonary biopsy. Return if shortness of breath persists or worsens, or if you develop chest pain, fever, cough, confusion, or fainting. Please review the discharge instructions, they will tell you about your disease/injury and what you need to return to the ED for Return to the ED if you feel worse or can follow-up with your family doctor Return to the emergency department if you get shortness of breath at rest or you develop pain in the middle of your chest fevers or cough Follow-up with your family doctor in 3 to 5 days Prescriptions: Prednisone [Deltasone 20 mg Tablet] 20 mg PO BID #8 tablet Nitrofurantoin/Nitrofuran Mac [Macrobid 100 mg Capsule] 1 tab PO BID #14 capsule Referrals: NICKY KRUEGER MD [Primary Care Provider] - Follow up as needed
[2019-10-29] MEDS ORDERED: NITROFURANTOIN MONOHYD/M-CRYST 100 MG CAPSULE PO ONE (20:00)
[2019-10-29] MEDS ORDERED: PREDNISONE 20 MG TABLET PO ONE (20:01)
[2019-10-29 20:37] VITALS: BP 140/64
[2019-10-30 14:00] LABS: PATH REVIEW PATHOLOGIST REVIEWED
== END 2019-10-29 20:42 | disposition home or self-care (01) ==
LOC: ER 11:52
DX: E11.9 Type 2 diabetes mellitus without complications (principal); L29.9 Pruritus, unspecified; R06.09 Other forms of dyspnea; R06.02 Shortness of breath
CPT/HCPCS: 93005; 99285; 36415; 87086; 85025; 87088; 80053; 81001; 84484; 87186; 83880; 71046; 93010; A9270 ×2; J7512; J8499